=== PATIENT | male | born 1975 | race Caucasian/White ===

== ENCOUNTER 2017-04-08 22:44 | Emergency (ER) | payer BC, OTHER ==
[~2017-04-08] VITALS: Ht 177.8 cm; Wt 90.9 kg
[2017-04-09 00:39] LABS: BASO # 0.1 K/mm3 (0.0-0.2); BASO % 0.6 % (0.0-1.0); EOS # 0.3 K/mm3 (0.0-0.50); EOS % 3.1 % (0.0-3.0); LARGE UNSTAINED CELL # 0.2 K/mm3 (0.0-0.4); LYMPH % 28.8 % (24.0-44.0); MEAN CORPUSCULAR HEMOGLOBIN 30.4 pg (27.0-33.0); MEAN CORPUSCULAR HGB CONC 35.6 g/dl (32.0-36.5); MEAN CORPUSCULAR VOLUME 85.5 fl (80.0-96.0); MONO # 0.7 K/mm3 (0.0-0.8); MONO % 7.5 % (0.0-5.0); NEUTROPHILS # 5.7 K/mm3 (1.8-7.7); PLATELET COUNT, AUTOMATED 212 k/mm3 (150-450); RED CELL DISTRIBUTION WIDTH 12.9 % (11.5-14.5); WHITE BLOOD COUNT 9.8 K/mm3 (4.0-10.0)
[2017-04-09 01:07] LABS: METHADONE URINE NEGATIVE (NEGATIVE)
[2017-04-09 01:10] LABS: ANION GAP 5 MEQ/L (8-16); BLOOD UREA NITROGEN 12 MG/DL (7-18); CARBON DIOXIDE LEVEL 30 MEQ/L (21-32); CHLORIDE LEVEL 104 MEQ/L (98-107); CREATININE FOR GFR 0.94 MG/DL (0.70-1.30); GLOMERULAR FILTRATION RATE > 60.0 (>60); GLUCOSE, FASTING 113 MG/DL (70-105); POTASSIUM SERUM 3.6 MEQ/L (3.5-5.1); SODIUM LEVEL 139 MEQ/L (136-145)
[2017-04-09] MEDS ORDERED: LISINOPRIL 10 MG TAB PO ONE (01:15)
[2017-04-09] MEDS ORDERED: amLODIPine 5 MG TAB PO ONE (01:15)
[2017-04-09] MEDS ORDERED: cloNIDine 0.1 MG TAB PO ONE (02:45)
[2017-04-09 02:50] VITALS: BP 175/120
[2017-04-09] MEDS ORDERED: LISI10TA4 PO (03:38)
[2017-04-09 03:46] VITALS: BP 111/71
--- NOTE | 2017-04-09 08:17 | REP ---
Portable chest, 01:57 a.m., single AP view, patient sitting: There is an incomplete inspiratory effort with under aeration of the lung alaniz. There are no infiltrates, effusions or masses. Lung alaniz are clear. Cardiac size is normal for portable positioning. The saturnino, mediastinum, and bony thorax are unremarkable. Impression: Acute cardiopulmonary findings. Incomplete inspiratory effort. Signed by Willis Machado MD 04/09/2017 08:08 A
--- NOTE | 2017-04-09 20:20 | ECGEPIP ---
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
== END 2017-04-09 03:51 | disposition home or self-care (01) ==
LOC: M ED 22:44
DX: I10 Essential (primary) hypertension (principal); Z87.442 Personal history of urinary calculi; Z91.013 Allergy to seafood; Z91.030 Bee allergy status

== ENCOUNTER → 2017-10-20 | Outpatient (REF) | payer BC | LOC: M LAB REF 09:38 | DX: J11.1 Influenza due to unidentified influenza virus with other respiratory manifestations (principal) | CPT/HCPCS: 87633 ==

== ENCOUNTER → 2018-09-23 | Outpatient (CLI) | payer BC ==
[~2018-09-23] MED LIST: CHLO125TA PO; LISI10TA4 PO; POTA10TA67 PO; VALS1TAB47 PO
--- NOTE | 2018-09-23 14:18 | REP ---
LEFT ELBOW, FOUR VIEWS: HISTORY: Injury. There is no acute fracture or dislocation. The joint space is normal in appearance. IMPRESSION: There is no acute fracture or dislocation. Electronically Signed by Jose Tillman MD 09/23/2018 02:41 P
== END ==
LOC: M RAD 13:19
PROVIDERS: ATTEND Physician Assistant
DX: S59.902A Unspecified injury of left elbow, initial encounter (principal); W18.30XA Fall on same level, unspecified, initial encounter; Y92.009 Unspecified place in unspecified non-institutional (private) residence as the place of occurrence of the external cause

== ENCOUNTER 2019-02-03 07:40 | Emergency (ER) | payer BC ==
[~2019-02-03] VITALS: Ht 172.7 cm; Wt 88.1 kg
[~2019-02-03 07:40] MED LIST changes: -VALS1TAB47 PO; +VALS1TAB67 PO
[2019-02-03] MEDS ORDERED: TELM1TAB (07:46)
[2019-02-03 08:33] LABS: APPEARANCE, URINE MANUAL TURBID (CLEAR); COLOR, URINE MANUAL BROWN (YELLOW)
[2019-02-03 08:34] LABS: BLOOD URINE MANUAL POSITIVE (NEGATIVE); GLUCOSE, URINE (UA) MANUAL NEGATIVE (NEGATIVE); PH,URINE MAN 5.5 UNITS (5.0 - 7.0); PROTEIN, URINE MANUAL 2+ mg/dL (NEGATIVE); SPECIFIC GRAVITY,URINE MANUAL 1.025 (1.002-1.035)
[2019-02-03 08:35] LABS: BILIRUBIN, URINE MANUAL OBSCURED (NEGATIVE); KETONE, URINE MANUAL OBSCURED mg/dL (NEGATIVE); LEUKOCYTE ESTERASE, URINE MAN POSITIVE (NEGATIVE); NITRITE, URINE MANUAL OBSCURED (NEGATIVE); UROBILINOGEN, URINE MANUAL OBSCURED mg/dl (NORMAL)
[2019-02-03 08:36] LABS: BASO % 0.4 % (0.0-1.0); EOS # 0.5 10^3/uL (0.0-0.50); EOS % 5.9 % (0.0-3.0); HEMATOCRIT 45.4 % (42.0-52.0); LYMPH # 2.3 10^3/uL (1.5-4.5); LYMPH % 30.5 % (24.0-44.0); MEAN CORPUSCULAR HEMOGLOBIN 30.9 pg (27.0-33.0); MEAN CORPUSCULAR HGB CONC 35.2 g/dl (32.0-36.5); MEAN CORPUSCULAR VOLUME 87.8 fl (80.0-96.0); MONO # 0.7 10^3/uL (0.0-0.8); MONO % 9.2 % (0.0-5.0); NEUTROPHILS % 53.2 % (36.0-66.0); PLATELET COUNT, AUTOMATED 183 10^3/uL (150-450); RED BLOOD COUNT 5.17 10^6/uL (4.30-6.10); WHITE BLOOD COUNT 7.6 10^3/uL (4.0-10.0)
[2019-02-03 08:47] LABS: RBC, URINE TNTC /hpf (0-3)
[2019-02-03 08:48] LABS: AMORPHOUS SEDIMENT, URINE SMALL AMOUNT (NEGATIVE); BACTERIA, URINE SMALL AMOUNT; HYALINE CAST, URINE NONE SEEN /lpf (0-1); MUCUS, URINE MOD AMOUNT (NEGATIVE); SQUAMOUS EPITHELIAL CELL URINE SMALL AMOUNT /hpf (SMALL AMT)
[2019-02-03 08:56] LABS: BLOOD UREA NITROGEN 18 MG/DL (7-18); CALCIUM LEVEL 8.6 MG/DL (8.5-10.1); CARBON DIOXIDE LEVEL 30 MEQ/L (21-32); CHLORIDE LEVEL 104 MEQ/L (98-107); CREATININE FOR GFR 1.22 MG/DL (0.70-1.30); GLOMERULAR FILTRATION RATE > 60.0 (>60); GLUCOSE, FASTING 97 MG/DL (70-100); POTASSIUM SERUM 3.4 MEQ/L (3.5-5.1); SODIUM LEVEL 141 MEQ/L (136-145)
--- NOTE | 2019-02-03 09:23 | REP ---
KUB ABDOMEN AND PELVIS: KUB film of abdomen and pelvis is performed. Bowel gas pattern is normal. No abnormal calcifications are seen in the abdomen or pelvis. Visualized osseous structures appear unremarkable. IMPRESSION: Negative KUB. Electronically Signed by Willis Green MD 02/04/2019 08:52 A
[2019-02-03] MEDS ORDERED: FLOM0.4C39 PO (10:07)
--- NOTE | 2019-02-03 10:10 | REP ---
RENAL ULTRASOUND: Real-time sonographic evaluation of the kidneys performed. Kidneys are normal in size and echotexture, right kidney measuring 1.5 x 4.9 x 5.7 cm and left kidney 10.9 x 4.9 x 5.9 cm. There is no hydronephrosis bilaterally. I suspect a 6 mm calculus in the mid right renal collecting system. Urinary bladder is not well distended and not well evaluated. IMPRESSION: No hydronephrosis. I suspect 6 mm calculus mid right renal collecting system. Electronically Signed by Willis Green MD 02/04/2019 08:55 A
[2019-02-03 10:19] VITALS: BP 132/88
== END 2019-02-03 10:22 | disposition home or self-care (01) ==
LOC: M ED 07:40
DX: N20.0 Calculus of kidney (principal); J45.909 Unspecified asthma, uncomplicated

== ENCOUNTER 2021-08-10 08:21 | Emergency (ER) | payer BC ==
[~2021-08-10] VITALS: Ht 175.3 cm; Wt 80.5 kg
[~2021-08-10 08:21] MED LIST changes: +FLOM0.4C39 PO; +LISI10TA22 PO; -LISI10TA4 PO; +TELM1TAB35
[2021-08-10 08:22] VITALS: BP 136/87
--- OUTSIDE RECORDS SUMMARY | 2021-08-10 08:28 | CCD | Continuity of Care Document ---
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 Name Role Phone Steve Chen MD AUT [phone] Problems Description No Information Available Social History Type Date Description Comments Sex Unknown ETOH Use Denies alcohol use Tobacco Use Start: Unknown Patient has never smoked Allergies and adverse reactions Active Allergies Criticality Reaction | Severity Comments Date NKDA Unable to assess criticality 12/07/2014 Shellfish-derived Products Unable to assess criticality 12/07/2014 Bee Sting Unable to assess criticality 12/07/2014 Medications Active Medications SIG Qnty Indications Ordering Provide r Date Aleve 220mg Capsules last dose at 8:30 am todya Unknown Immunizations Description No Information Available Vital Signs Date Vital Result Comment 12/07/2014 12:14pm BP Systolic 156 mmHg BP Diastolic 108 mmHg Heart Rate 82 /min Respiratory Rate 16 /min O2 % BldC Oximetry 98 % Body Temperature 98.6 F Weight 196.00 lb Height 68 inches 5'8" BMI (Body Mass Index) 29.8 kg/m2 Pain Level 3 Results Description No Information Available Procedures Description No Information Available Medical Devices Description No Information Available Encounters Description No Information Available Assessments Date Code Description Provider 08/07/2021 U07.1 Covid-19 ISIDORO Nicole Plan of Treatment No Information Available Functional Status Description No Information Available Mental Status Description No Information Available Referrals Description No Information Available
--- OUTSIDE RECORDS SUMMARY | 2021-08-10 08:28 | CCD | Continuity of Care Document ---
Author Author Richie PARKINSON Organization Unknown Address [address] [place], [place] [address] Phone [phone] Care Team Providers Care Group Social Worker Name Role Phone Steve Chen MD AUT [phone] Problems Description No Information Available Social History [...]
--- OUTSIDE RECORDS SUMMARY | 2021-08-10 08:29 | CCD ---
Author Author [facility] Organization [facility] Address Unknown Phone Unavailable Care Team Providers Care Clinical Biostatistics Director Name Role Phone MANJIT, L LEO PA Unavailable Unavailable MANJIT, L LEO PA Unavailable Unavailable MANJIT, L LEO PA Unavailable Unavailable MANJIT, L LEO PA Unavailable Unavailable MANJIT, L LEO PA Unavailable Unavailable MANJIT, L LEO PA Unavailable Unavailable MANJIT, L LEO PA Unavailable Unavailable MANJIT, L LEO PA Unavailable Unavailable MANJIT, L LEO PA Unavailable Unavailable MANJIT, L LEO PA Unavailable Unavailable MANJIT, L LEO PA Unavailable Unavailable MANJIT, L LEO PA Unavailable Unavailable MANJIT, L LEO PA Unavailable Unavailable MANJIT, L LEO PA Unavailable Unavailable MANJIT, L LEO PA Unavailable Unavailable MANJIT, L LEO PA Unavailable Unavailable Jia DAHL MD Unavailable Unavailable Jia DAHL MD Unavailable Unavailable Jia DAHL MD Unavailable Unavailable Jia DAHL MD Unavailable Unavailable Jia DAHL MD Unavailable Unavailable Jia DAHL MD Unavailable Unavailable Jia DAHL MD Unavailable Unavailable Jia DAHL MD Unavailable Unavailable Jia DAHL MD Unavailable Unavailable Jia DAHL MD Unavailable Unavailable Jia DAHL MD Unavailable Unavailable Jia DAHL MD Unavailable Unavailable OBEN, T NEO MD Unavailable Unavailable OBEN, T NEO MD Unavailable Unavailable OBEN, T NEO MD Unavailable Unavailable OBEN, T NEO MD Unavailable Unavailable OBEN, T NEO MD Unavailable Unavailable OBEN, T NEO MD Unavailable Unavailable OBEN, T NEO MD Unavailable Unavailable OBEN, T NEO MD Unavailable Unavailable OBEN, T NEO MD Unavailable Unavailable OBEN, T NEO MD Unavailable Unavailable OBEN, T NEO MD Unavailable Unavailable OBEN, T NEO MD Unavailable Unavailable OBEN, T NEO MD Unavailable Unavailable OBEN, T NEO MD Unavailable Unavailable OBEN, T NEO MD Unavailable Unavailable OBEN, T NEO MD Unavailable Unavailable OBEN, T NEO MD Unavailable Unavailable OBEN, T NEO MD Unavailable Unavailable OBEN, T NEO MD Unavailable Unavailable OBEN, T NEO MD Unavailable Unavailable OBEN, T NEO MD Unavailable Unavailable OBEN, T NEO MD Unavailable Unavailable OBEN, T NEO MD Unavailable Unavailable OBEN, T NEO MD Unavailable Unavailable OBEN, T NEO MD Unavailable Unavailable OBEN, T NEO MD Unavailable Unavailable OBEN, T NEO MD Unavailable Unavailable OBEN, T NEO MD Unavailable Unavailable OBEN, T NEO MD Unavailable Unavailable OBEN, T NEO MD Unavailable Unavailable OBEN, T NEO MD Unavailable Unavailable OBEN, T NEO MD Unavailable Unavailable OBEN, T NEO MD Unavailable Unavailable OBEN, T NEO MD Unavailable Unavailable OBEN, T NEO MD Unavailable Unavailable OBEN, T NEO MD Unavailable Unavailable OBEN, T NEO MD Unavailable Unavailable OBEN, T NEO MD Unavailable Unavailable OBEN, T NEO MD Unavailable Unavailable OBEN, T NEO MD Unavailable Unavailable OBEN, T NEO MD Unavailable Unavailable OBEN, T NEO MD Unavailable Unavailable OBEN, T NEO MD Unavailable Unavailable OBEN, T NEO MD Unavailable Unavailable OBEN, T NEO MD Unavailable Unavailable OBEN, T NEO MD Unavailable Unavailable OBEN, T NEO MD Unavailable Unavailable OBEN, T NEO MD Unavailable Unavailable OBEN, T NEO MD Unavailable Unavailable OBEN, T NEO MD Unavailable Unavailable OBEN, T NEO MD Unavailable Unavailable OBEN, T NEO MD Unavailable Unavailable OBEN, T NEO MD Unavailable Unavailable OBEN, T NEO MD Unavailable Unavailable OBEN, T NEO MD Unavailable Unavailable OBEN, T NEO MD Unavailable Unavailable OBEN, T NEO MD Unavailable Unavailable OBEN, T NEO MD Unavailable Unavailable OBEN, T NEO MD Unavailable Unavailable OBEN, T NEO MD Unavailable Unavailable OBEN, T NEO MD Unavailable Unavailable OBEN, T NEO MD Unavailable Unavailable OBEN, T NEO MD Unavailable Unavailable OBEN, T NEO MD Unavailable Unavailable OBEN, T NEO MD Unavailable Unavailable OBEN, T NEO MD Unavailable Unavailable OBEN, T NEO MD Unavailable Unavailable OBEN, T NEO MD Unavailable Unavailable OBEN, T NEO MD Unavailable Unavailable OBEN, T NEO MD Unavailable Unavailable OBEN, T NEO MD Unavailable Unavailable OBEN, T NEO MD Unavailable Unavailable OBEN, T NEO MD Unavailable Unavailable OBEN, T NEO MD Unavailable Unavailable OBEN, T NEO MD Unavailable Unavailable OBEN, T NEO MD Unavailable Unavailable OBEN, T NEO MD Unavailable Unavailable OBEN, T NEO MD Unavailable Unavailable OBEN, T NEO MD Unavailable Unavailable OBEN, T NEO MD Unavailable Unavailable OBEN, T NEO MD Unavailable Unavailable OBEN, T NEO MD Unavailable Unavailable OBEN, T NEO MD Unavailable Unavailable OBEN, T NEO MD Unavailable Unavailable OBEN, T NEO MD Unavailable Unavailable OBEN, T NEO MD Unavailable Unavailable OBEN, T NEO MD Unavailable Unavailable OBEN, T NEO MD Unavailable Unavailable OBEN, T NEO MD Unavailable Unavailable OBEN, T NEO MD Unavailable Unavailable OBEN, T NEO MD Unavailable Unavailable OBEN, T NEO MD Unavailable Unavailable OBEN, T NEO MD Unavailable Unavailable OBEN, T NEO MD Unavailable Unavailable OBEN, T NEO MD Unavailable Unavailable OBEN, T NEO MD Unavailable Unavailable OBEN, T NEO MD Unavailable Unavailable OBEN, T NEO MD Unavailable Unavailable OBEN, T NEO MD Unavailable Unavailable OBEN, T NEO MD Unavailable Unavailable OBEN, T NEO MD Unavailable Unavailable OBEN, T NEO MD Unavailable Unavailable OBEN, T NEO MD Unavailable Unavailable OBEN, T NEO MD Unavailable Unavailable Rita CARR MD Unavailable Unavailable Rita CARR MD Unavailable Unavailable Rita CARR MD Unavailable Unavailable Rita CARR MD Unavailable Unavailable Rita CARR MD Unavailable Unavailable Rita CARR MD Unavailable Unavailable Rita CARR MD Unavailable Unavailable Rita CARR MD Unavailable Unavailable Rita CARR MD Unavailable Unavailable Rita CARR MD Unavailable Unavailable Rita CARR MD Unavailable Unavailable Re-disclosure Warning The records that you are about to access may contain information from federally-assisted alcohol or drug abuse programs. If such information is present, then the following federally mandated warning applies: This information has been disclosed to you from records protected by federal confidentiality rules (42 CFR part 2). The federal rules prohibit you from making any further disclosure of this information unless further disclosure is expressly permitted by the written consent of the person to whom it pertains or as otherwise permitted by 42 CFR part 2. A general authorization for the release of medical or other information is NOT sufficient for this purpose. The Federal rules restrict any use of the information to criminally investigate or prosecute any alcohol or drug abuse patient.The records that you are about to access may contain highly sensitive health information, the redisclosure of which is protected by Article 27-F of the [facility] Public Health law. If you continue you may have access to information: Regarding HIV / AIDS; Provided by facilities licensed or operated by the [facility] Office of Mental Health; or Provided by the [facility] Office for People With Developmental Disabilities. If such information is present, then the following [facility] mandated warning applies: This information has been disclosed to you from confidential records which are protected by state law. State law prohibits you from making any further disclosure of this information without the specific written consent of the person to whom it pertains, or as otherwise permitted by law. Any unauthorized further disclosure in violation of state law may result in a fine or [place] health [facility] facility sentence or both. A general authorization for the release of medical or other information is NOT sufficient authorization for further disc losure. Family History Family Member Name Family Member Gender Family Member Status Date o f Status Description Data Source(s) Unknown Male Problem [facility] ([facility]) Unknown Male Problem [facility] ([facility]) at age 64 Encounters Encounter Providers Location Date Indications Data Source(s ) Outpatient Attender: LEO CHAUDHRY Main Office 02/08/2021 0 8:15:00 AM EDT [facility] ([facility]) Outpatient Attender: NEO DAHL MD Family Practice 01/16/2021 10:00:0 0 AM EDT [facility] ([facility]) Outpatient Attender: NEO DAHL MD 01/17/20 09:53:00 AM EDT - 01/16/2021 09:53:00 AM EDT [facility] Emergency Attender: ESTEPHANIA CARR MD 10/19/2020 07:32:00 AM EST - 10/19/2020 10:03:00 AM EST [facility] Patient discharged. Outpatient Attender: LEO CHAUDHRY Main Office 08/08/2020 0 7:00:00 AM EST [facility] ([facility]) Medications Medication Brand Name Start Date Product Form Dose Route Admi nistrative Instructions Pharmacy Instructions Status Indications Reaction Description Data Source(s) Losartan Potassium 50 MG Oral Tablet Losartan Potassium 06/2021 12:00:00 AM EDT ORAL active [facility] ([facility]) 25 mg 07/26/2020 12:00:00 AM EST tablet 15 TAKE ONE-HALF TABLET BY MOUTH EVERY DAY TAKE ONE-HALF TABLET BY MOUTH EVERY DAY SOLD: 07/26/2020 [facility] 25 mg 07/26/2020 12:00:00 AM EST tablet 15 TAKE ONE-HALF TABLET BY MOUTH EVERY DAY TAKE ONE-HALF TABLET BY MOUTH EVERY DAY SOLD: 07/26/2020 [facility] Chlorthalidone 25 MG Oral Tablet Chlorthalidone 07/26/2020 12:00:00 A M EST ORAL active [facility] ([facility]) Spironolactone 25 MG Oral Tablet Spironolactone 07/26/2020 12:00:00 A M EST ORAL completed [facility] ([facility]) telmisartan 40 MG Oral Tablet TELMISARTAN 03/29/2020 12:00:00 AM EDT tablet 90 TAKE ONE TABLET BY MOUTH AT BEDTIME TAKE ONE TABLET BY MOUTH AT BEDTIME SOLD: 07/07/2020 [facility] Insurance Providers Payer name Policy type / Coverage type Policy ID Covered constitution party ID Covered constitution party's relationship to obrien Policy Obrien Plan Information BCBS ARIANNA BULL PPO 302/307 [id number] SP [id number] [facility] [id number] 18 [id number] [facility] SHIELD -O/P [place] [id number] 18 [id number] BLUE [facility] CO [id number] 18 [id number] [employer] BC-BS PPO [id number] SP [id number] [employer] [facility] BS [id number] 18 [id number] BLUE [facility] [place] [id number] 18 [id number] [employer]BS B [id number] S [id number] [facility] Shield Commercial [id number] Self V [id number] [employer]BS [employer] U/W Commercial [id number] Self [id number] [employer] U/[employer] Commercial [id number] Self [id number] [employer] U/[employer] Commercial [id number] Self [id number] [employer]-BS PPO [id number] SP [id number] [employer] Ppo U/W Commercial [id number] Self V [id number] [employer] BC-BS PPO [id number] SP [id number] [facility] [id number] SP [id number] Problems, Conditions, and Diagnoses Code Display Name Description Problem Type Effective Dates Data Source(s) E73273 Personal history of urinary calculi Personal his tory of urinary calculi Diagnosis 10/19/2020 07:32:00 AM [facility] I10 Essential (primary) hypertension Essential (primary) h ypertension Diagnosis 10/19/2020 07:32:00 AM [facility] R319 Hematuria, unspecified Hematuria, unspecified Diagnosi s 10/19/2020 07:32:00 AM [facility] N132 Hydronephrosis with renal and ureteral c alculous obstruction Hydronephrosis with renal and ureteral calculous obstruction Diagnosis 10/19/19 07:32:00 AM [facility] R109 Unspecified abdominal pain Unspecified abdominal pain Diagnosis 10/19/2020 07:32:00 AM [facility] Surgeries/Procedures Procedure Description Date Indications Data Source(s) ECG ROUTINE ECG W/LEAST 12 LDS W/I&R 02/08/2021 12:00: 00 AM EDT [facility] ([facility]) Results ID Date Data Source [id number] 01/16/2021 02:07:00 PM EDT [facility] ([facility]) Name Value Range Interpretation Code Description Data Lucia rce(s) Supporting Document(s) Appearance of Urine Laboratory test result [facility] ([facility]) Color of Urine Laboratory test result [facility] ([facility]) pH of Urine by Test strip 7 5-9 MEDE NT ([facility]) Spec Ely 1.015 1.001-1.030 [facility] ([facility]) Nitrate [Presence] in Urine Laboratory test result [facility] ([facility]) Leukocytes Laboratory test result [facility] ([facility]) Inhouse Glucose Laboratory test result [facility] ([facility]) Protein [Presence] in Urine by Test strip Laboratory test result [facility] ([facility]) Urobilinogen Laboratory test result [facility] ([facility]) Ketones [Presence] in Urine by Test strip Laboratory test result [facility] ([facility]) Bilirubin.total [Presence] in Urine by Test strip Laboratory test res ult [facility] ([facility]) Blood type and Indirect antibody screen panel - Blood Laboratory test result [facility] ([facility]) ID Date Data Source [id number] 01/16/2021 10:34:00 AM EDT [facility] ([facility]) Name Value Range Interpretation Code Description Data Lucia rce(s) Supporting Document(s) Abdomen XR 1 View Laboratory test result [facility] ([facility]) ID Date Data Source [id number] 10/19/2020 07:32:00 AM EST [facility] 1 OrderSheet [facility] Emergency Department [address] [place] [address] Phone #: [phone] 10/19/2020 07:19 Patient: PIERRE ROQUE Sex: M : 1975 Age: 45yWEIGHT:85.2 kg (S) HEIGHT:69 inches (S) BMI:27.8ALLERGIES: ROBIN Inhibitors, Bees, Nuclear stress test, Shellfish-derived ProductsCHIEF COMPLAINT: flank pain:, RtDIAGNOSIS: Renal colicLAB ORDERSOrder Description Priority Entered Acknowledged InitialedCBC w Diff STAT 07:26 10/19/2020 07:46 Lilly Pino Victoria Jennifer R.N. ;CMP STAT 07:10/19/2020 07:46 Lilly Pion Victoria Jennifer R.N. ;Urinalysis (Clean STAT 07:10/19/2020 07:29 Odette,Catch) Estephania Carr R.N. ;DIAGNOSTIC STUDY ORDERSOrder Description Priority Entered Acknowledged Ini tialedCT ABD PEL W/O STAT 07:26 10/19/2020 Ack'd: 07:29 07:58 Duval,Oral W/O IV Estephania Carr Jennifer Jennifer R.N.Contrast ; R.N.(Oxygen?(No))(IV?(Yes)) Reason for Study: right flank pain hx of kidney stoneMEDICATION/IV/DRIP/FLUID ORDERSOrder Description Priority Entered Acknowledged InitialedNS IV : Bolus 1000 07:26 10/19/2020 Ack'd: 07:29 07:39 Bernardino Acosta, then 100 mL/hr Estephania Carr Jennifer R.N. ; R.N.Toradol IVP 30 mg 07:26 10/19/2020 Ack'd: 07:29 07:39 Sierra Acosta(NOW x1) Estephania Carr, Dawn Nevarez ; R.N.Zofran 4 mg IVP X 1 07:26 10/19/2020 Ack'd: 07:29 07:40 Kasey Acostaose: 4 mg (NOW Estephania Carr, Dawn Nevarez 2 OrderSheet [facility] Emergency Department [address] [place] [address] Phone #: ext- [phone] 10/19/2020 07:19 Patient: PIERRE ROQUE Sex: M : 1975 Age: 45yx1) ; R.N.Zofran IVP 8 mg 08:14 10/19/2020 08:19 Duval,(NOW x1) Krishna Gandhi ; Dawn Nevarez Verbal order per; Estephania CarrMorphine IVP 4 mg 08:14 10/19/2020 08:21 Duval,(NOW x1, HIGH Krishna Gandhi ; Dawn NevarezALERT Verbal order per;MEDICATION) Estephania CarrMorphine IVP 4 mg 08:47 10/19/2020 08:57 Duval,(HIGH ALERT Estephania Carr R.N.MEDICATION) ;Flomax PO 0.4 mg 08:47 10/19/2020 08:55 Duval,(NOW x1, Do not Estephania Carr R.N.crush or chew) ;GENERAL ORDERSOrder Description Priority Entered Acknowledged Initialed[Electronically signed by Marcos Rossi RN (21:52 10/19/2020)][Electronically signed by Estephania Carr (23:54 10/19/2020)][Electronically locked by Marcos Rossi RN (21:52 10/19/2020)] Name Value Range Interpretation Code Description Data Lucia rce(s) Supporting Document(s) ID Date Data Source [id number] 10/19/2020 07:32:00 AM EST [facility] 1 Medication Reconciliation Report [facility] Emergency Department [address] [place] [address] Phone #: [phone] 10/19/2020 07:19 Patient: PIERRE ROQUE Sex: M : 1975 Age: 45yWeight: 85.2 kgHeight/Length: 69 in.BMI: 27.8ALLERGIES: ROBIN Inhibitors, Bees, Nuclear stress test, Shellfish-derived ProductsThe patient's Home Medications are listed below:CONTINUE TAKING THE FOLLOWING MEDICATIONS: Chlorthalidone Oral (25 mg) 1/2 tablet, daily T elmisartan Oral 40 mg, dailyThe source(s) of the original Home Medication information:patientThe following Medications were given to the patient in the Emergency Department:NS [IV] IV Fluids bolus 1000 mL over 1 hour(s), administered: 07:39 10/19/2020Toradol [IVP] IVP 30 mg, administered: 07:39 10/19/2020Zofran [IVP] IVP 4 mg, administered: 07:40 10/19/2020Zofran [IVP] IVP 8 mg, administered: 08:17 10/19/2020Morphine [IVP] IVP 4 mg diluted in NS 10 mL, administered: 08:21 10/19/2020Flomax [PO] PO 0.4 mg, administered: 08:55 10/19/2020Morphine [IVP] IVP 4 mg diluted in NS 10 mL, administered: 08:57 0 10/19/2020The following Medications were prescribed to the patient:Percocet 5 mg- 325 mg tablet Take 1 tablet every six hours as needed for pain for 3 days -- Dispense 12tablet. Refills: 0. Substitution permitted.[facility] [address] [place] [address] ; [place], [place] [phone]. . 2 Medication Reconciliation Report [facility] Emergency Department [address] [place] [address] Phone #: ext [phone] 10/19/2020 07:19 Patient: PIERRE ROQUE Sex: M : 1975 Age: 45yIBU 800 mg tablet Take 1 tablet three times a day for 15 days -- Dispense 45 tablet. Refills: 0.Substitution permitted.[facility] [address] [place] [phone]. .Flomax 0.4 mg capsule Take 1 capsule single dose for 7 days -- Dispense 7 capsule. Refills: 0.Substitution permitted.[facility] [address] [place] [phone]. .ondansetron 4 mg disintegrating tablet Take 1 tablet three times a day for 3 days -- prn nausea/vomiting.Dispense 9 tablet. Refills: 0. Substitution permitted.[facility] [address] [place] [phone]. . -- Estephania Carr Name Value Range Interpretation Code Description Data Lucia rce(s) Supporting Document(s) ID Date Data Source [id number] 10/19/2020 07:32:00 AM EST [facility] 1 Medication Administration Record [facility] Emergency Department [address] [place] [address] Phone #: ext- [phone] 10/19/2020 07:19 Patient: PIERRE ROQUE Sex: M : 1975 Age: 45yWeight: 85.2 kgHeight/Length: 69 inBMI: 27.8ALLERGIES: Nuclear stress test, Bees, Shellfish-derived Products, ROBIN Inhibitors Date/Time Medication Administered Medication OrderedStart NS [IV] NS IV : Bolus 1000 mL, then 57203:39 10/19/2020 Dose: IV Fluids mL/hrSierra Acosta R.N. Bolus: 1000 mL over 1 hour(s)---- Dispensed: 1000 mL bagStop Site: #1 right AC10:00 1Peter Roderick Rossi TORADOL [IVP] (KETOROLAC Toradol IVP 30 mg (NOW x1)07:39 10/19/2020 TROMETHAMINE)Sierra Acosta R.N. Dose: 30 mg IVP Site: #1 right ACGiven ZOFRAN [IVP] (ONDANSETRON HCL) Zofran 4 mg IVP X 1 dose: 4 mg07:40 10/19/2020 Dose: 4 mg IVP (NOW x1)Sierra Acosta R.N. Site: #1 right ACGiven ZOFRAN [IVP] (ONDANSETRON HCL) Zofran IVP 8 mg (NOW x1)08:17 10/19/2020 Dose: 8 mg IVPPutDawn turner R.N. Site: #1 right ACGiven MORPHINE [IVP] Morphine IVP 4 mg (NOW x1, HIGH08:21 10/19/2020 Dose: 4 mg IVP ALERT MEDICATION)Dawn Pino R.N. In: NS 10 mL Site: #1 right ACGiven MORPHINE [IVP] Morphine IVP 4 mg (HIGH ALERT08:57 10/19/2020 Dose: 4 mg IVP MEDICATION)Dawn Pino R.N. In: NS 10 mL Site: #1 right ACGiven FLOMAX [PO] (TAMSULOSIN HCL) Flomax PO 0.4 mg (NOW x1, Do08:55 10/19/2020 Dose: 0.4 mg Capsules PO not crush or chew)Dawn Pino R.N. Name Value Range Interpretation Code Description Data Lucia rce(s) Supporting Document(s) ID Date Data Source [id number] 10/19/2020 07:32:00 AM EST [facility] 1 General Instructions [facility] Emergency Department [address] [place] [address] Phone #: ext- [phone] 10/19/2020 07:19 Patient: PIERRE ROQUE Sex: M : 1975 Age: 45yRight renal colic in the right ureter with multiple calculi with hydronephrosis and hematuria.INSTRUCTIONSDrink plenty of fluids.(take the flomax daily. take motrin for moderate pain and percocet as needed for severe pain/ takezofran as needed for nausea. follow up wit urology DR Dahl on friday).Warnings: SEDATIVE MEDICATION: You were given sedative medication during your visit. Do not driveor operate dangerous machinery.GENERAL WARNINGS: Return or contact your physician immediately if your condition worsens orchanges unexpectedly, if not improving as expected, or if other problems arise.Your Current Medications: Your current home medications have been reviewed.CONTINUE TAKING THE FOLLOWING MEDICATIONS:Chlorthalidone Oral : Tablet 25 mg, 1/2 tablet daily.Telmisartan Oral : 40 mg daily.Prescription Medications:Percocet 5 mg-325 mg tablet Take 1 tablet every six hours as needed for pain for 3 days -- Dispense 12tablet. Refills: 0. Substitution permitted.Pharmacy - [facility] [address] [facility] ; [place], [place] [id number]. .IBU 800 mg tablet Take 1 tablet three times a day for 15 days -- Dispense 45 tablet. Refills: 0.Substitution permitted.[facility] [address] [place] [address] ; [place], [place] [phone]. .Flomax 0.4 mg capsule Take 1 capsule single dose for 7 days -- Dispense 7 capsule. Refills: 0.Substitution permitted.[facility] [employer] [facility] [address] [place] [phone]. FaxNumber: [phone].ondansetron 4 mg disintegrating tablet Take 1 tablet three times a day for 3 days -- prn nausea/vomiting.Dispense 9 tablet. Refills: 0. Substitution permitted.[facility] [employer] [address] [place] [address] ; [place], [place] [phone]. . 2 General Instructions [facility] Emergency Department [address] [place] [id number] Phone #: ext- [phone] 10/19/2020 07:19 [id number] Sex: M : 1975 Age: 45yFollow-up:Blood pressure screening was not performed during this visit because the patient has an active diagnosisof hypertension. The patient should follow up with a primary care provider for blood pressure management.Follow-up with: Neo Dahl M.D., Urology, , [address] [place] [address], [address] Follow up Friday. Call for the next available appointment. Reason for referral: evaluation. Summary ofcare provided to patient via paper. ADDITIONAL INFORMATIONKidney Stone with PainThe sharp cramping pain on either side of your lower back and nausea/vomiting that you have arebecause of a small stone that has formed in the kidney. It is now passing down a narrow tube (ureter)on its way to your bladder. Once the stone reaches your bladder, the pain will often stop. But it maycome back as the stone continues to pass out of the bladder and through the urethra. The stone maypass in your urine stream in one piece. The size may be 1/16 inch to 1/4 inch (1 mm to 6 mm). Or, thestone may break up into niranjan fragments that you may not even notice.Once you have had a kidney stone, you are at risk of getting another one in the future. There are 4types of kidney stones. Eighty percent are calcium stones--mostly calcium oxalate but also some 3 General Instructions [facility] Emergency Department [address] [place] [address] Phone #: ext- [phone] 10/19/2020 07:19 Patient: PIERRE ROQUE Sex: M : 1975 Age: 45ywith calcium phosphate. The other 3 types include uric acid stones, struvite stones (from a precedinginfection), and rarely, cystine stones.Most stones will pass on their own, but may take from a few hours to a few days. Sometimes thestone is too large to pass by itself. In that case, the healthcare provider will need to use other ways toremove the stone. These techniques include: Lithotripsy. This uses ultrasound waves to break up the stone. Ureteroscopy. This pushes a basket-like instrument through the urethra and bladder and into the ureter to pull out the stone. Various types of direct surgery through the skinHome careThe following are general care guidelines: Drink plenty of fluids. This means at least 12, 8-ounce glasses of fluid--mostly water--a day. Each time you urinate, do so in a jar. Pour the urine from the jar through the strainer and into the toilet. Continue doing this until 24 hours after your pain stops. By then, if there was a kidney stone, it should pass from your bladder. Some stones dissolve into sand-like particles and pass right through the strainer. In that case, you won't ever see a stone. Save any stone that you find in the strainer and bring it to your healthcare provider to look at. It may be possible to stop certain types of stones from forming. For this reason, it is important to know what kind of stone you have. Try to stay as active as possible. This will help the stone pass. Don't stay in bed unless your pain keeps you from getting up. You may notice a red, pink, or brown color to your urine. This is normal while passing a kidney stone. If you develop pain, you may take ibuprofen or naproxen for pain, unless another medicine was prescribed. If you have chronic liver or kidney disease, talk with your healthcare provider before taking these medicines. Also talk with your provider if you've had a stomach ulcer or GI bleeding.Preventing stonesEach year for the next 5 to 7 years, you are at risk that a new stone will form. Your risk is a 50%chance over this time period. The risk is higher if you have a family history of kidney stones or havecertain chronic illnesses like hypertension, obesity, or diabetes. But you can make changes to yourlifestyle and diet that can lower your risk for another stone.Most kidney stones are made of calcium. The following is advice for preventing another calcium 4 General Instructions [facility] Emergency Department [address] [place] [address] Phone #: ext- [phone] 10/19/2020 07:19 Patient: PIERRE ROQUE Sex: M : 1975 Age: 45ys tone. If you don't know the type of stone you have, follow this advice until the cause of your stone isfound.Things that help: The most important thing you can do is to drink plenty of fluids each day. See home care above. Eat foods that contain phytates. These include wheat, rice, rye, barley, and beans. Phytates are substances that may lower your risk for any type of stone to form. Eat more fruits and vegetables. Choose those that are high in potassium. Eat foods high in natural citrate like fruit and low-sugar fruit juices. Having too little calcium in your diet can put you at risk for calcium kidney stones. Eat a normal amount of calcium in your diet and talk with your healthcare provider if you are taking calcium supplements. Cutting back on your calcium intake may raise your risk. New research shows that eating calcium-rich and oxalate-rich foods together lowers your risk for stones by binding the minerals in the stomach and intestines before they can reach t he kidneys. Limit salt intake to 2 grams (1 teaspoon) per day. Use limited amounts when cooking, and don't add salt at the table. Processed and canned foods are usually high in salt. Spinach, rhubarb, peanuts, cashews, almonds, grapefruit, and grapefruit juice are all high oxalate foods. You should limit how much of these you eat. Or eat them with calcium-rich foods. These include dairy products, dark leafy greens, soy products, and calcium-enriched foods. Reducing the amount of animal meat and high protein foods in your diet may lower your risk for uric acid stones. Avoid excess sugar (sucrose) and fructose (sweetener in many soft drinks) in your diet. If you take vitamin C as a supplement, don't take more than 1,000 mg a day. A dietitian or your healthcare provider can give you information about changes in your diet that will help prevent more kidney stones from forming.Follow-up careFollow up with your healthcare provider, or as advised, if the pain lasts m ore than 48 hours. Talk withyour provider about urine and blood tests to find out the cause of your stone. If you had an X-ray, CTscan, or other diagnostic test, you will be told of any new findings that may affect your care.Call [phone] General Instructions [facility] Emergency Department [address] [place] [address] Phone #: ext- [phone] 10/19/2020 07:19 Patient: PIERRE ROQUE Sex: M : 1975 Age: 45yCall 911 if you have any of these: Weakness, dizziness, or faintingWhen to seek medical adviceCall your healthcare provider right away if any of these occur: Pain that is not controlled by the medicine given Repeated vomiting or unable to keep down fluids Fever of 100.4F (38C) or higher, or as directed by your healthcare provider Passage of solid red or brown urine (can't see through it) or urine with lots of blood clots Foul-smelling or cloudy urine Unable to pass urine for 8 hours and increasing bladder pressure [id number] [employer]. [address] [place] [address]. All rights reserved. This information is not intended as asubstitute for professional medical care. Always follow your healthcare professional's instructions. You have been given the following additional information: Kidney Stone w/ Colic(Electronically signed by Estephania Carr 10/19/2020 23:54) Name Value Range Interpretation Code Description Data Lucia rce(s) Supporting Document(s) ID Date Data Source [id number] 10/19/2020 07:32:00 AM EST [facility] 1 Clinical Report - Nurses [facility] Emergency Department [address] [place] [address] Phone #: ext- [phone] 10/19/2020 07:19 Patient: PIERRE ROQUE Sex: M : 1975 Age: 45yTRIAGEArrived by private vehicle. Historian: patient. Unaccompanied.Triage time: late entry - 07:19 10/19/2020. Acuity: LEVEL 3.Chief Complaint: FLANK PAIN.Alert.This started today. Onset. (15 minutes ago). ( Pt states he has a large history of multiple kidney stonesin the past. Pt states this morning he started having right sided flank pain, after trying to void this morningand had painful urination.). The patient has had nausea. 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 SEPSIS SCREEN NEGATIVE. No suspected or confirmedsigns of infection present. (07:28 10/19/2020). --07:28 10/19/20 Dawn Pino R.N.07 :20 10/19/20. BP: 135/84. MAP: 101. HR: 75. RR: 20. O2 saturation: 100% on room air. Temp: 97.1 F(oral). Pain level now 7/10. --07:28 10/19/20 Dawn Pino R.N.Weight: 85.2 kg stated. Height/Length: 69 inches Per Patient. BMI: 27.8. --07:18 10/19/20 Dawn Pino R.N.MedicationsChlorthalidone Oral (Tablet 25 mg) 1/2 tablet, daily. --07:26 10/19/20 Dawn Pino R.N. Telmisartan Oral 40 mg, daily. --07:26 10/19/20 Dawn Pino R.N.The following entry was struck and corrected by Dawn Pino R.N., 08:21 (10/19/20) Reason forcorrection - other(correction). Telmisartan Oral, daily. --07:26 10/19/20 Dawn Pino R.N.The following entry was struck and corrected by Dawn Pino R.N., 08:21 (10/19/20) Reason forcorrection - other(correction). Chlorthalidone Oral 1/2 PILL, daily. --07:26 10/19/20 Dawn Pino R.N. .AllergiesShellfish-derived Products. --07:26 10/19/20 Dawn Pino R.N.Bees. --07:26 10/19/20 Dawn Pino R.N.Nuclear stress test. (dye??) --07:26 10/19/20 aDwn Pino R.N.ROBIN Inhibitors. Side-Effect Mild (Cough) --08:16 10/19/20 Krishna Gandhi. 2 Clinical Report - Nurses [facility] Emergency Department [address] [place] [address] Phone #: ext- [phone] 10/19/2020 07:19 ----- Patient: PIERRE ROQUE Sex: M : 1975 Age: 45y PROBLEMS: Nephrolithiasis. Hypertension. --07:27 10/19/20 Dawn Pino R.N. Medication/allergy information source: the patient. --07:28 10/19/20 Dawn Pino R.N. ADDITIONAL SURGERIES: no known surgeries. History PAST MEDICAL HX: Immunizations: up-to-date. SOCIAL HX: Never smoker. No alcohol use or drug use. No recent travel. No known contact with a sick individual. The patient was offered HIV testing but declined. Patient education was provided. The patient was offered hepatitis C testing but declined. Patient education was provided. ( COVID screen negative). The patient has not traveled outside the [place] Infectious disease exposure: No infectious disease exposure. The patient was not exposed to Coronavirus. Mask placed on patient. Patient is not a known carrier of tuberculosis, hepatitis, HIV, MRSA or VRE. Patient is not a known carrier of CRE. SELF HARM ASSESSMENT: Self harm assessment was performed. The patient answered "no" to the question(s) "Do you have thoughts of harming or killing yourself?" and "Do you have a plan for harming or killing yourself?". ABUSE ASSESSMENT: Abuse assessment. The patient had positive responses to the question(s) "Do you feel safe in your home?". Abuse denied. No suspicion of abuse. No report of abuse. NUTRITIONAL RISK ASSESSMENT: The nutritional risk assessment revealed no deficiencies. FUNCTIONAL ASSESSMENT: Functional assessment: no impairments noted. LEARNING NEEDS ASSESSMENT: The learning needs assessment revealed no barriers. FALL RISK ASSESSMENT: Fall risk assessment co mpleted. No risk factors identified. SKIN INTEGRITY ASSESSMENT: Skin integrity risk assessment completed. No skin integrity risk identified. --:10/19/20 Dawn Pino R.N. Interventions Identification band on patient. --:10/19/20 Dawn Pino R.N.PHYSICAL ASSESSMENTAmbulatory to room.GENERAL / NEURO / PSYCH: Alert. Oriented X 4. Appears in pain.HEENT: Mucous membranes are pink. 3 Clinical Report - Nurses [facility] Emergency Department [address] [place] [address] Phone #: ext- [phone] 10/19/2020 07:19 Patient: PIERRE ROQUE Sex: M : 1975 Age: 45y RESPIRATORY: Respirations not labored. Breath sounds within normal limits. CVS: Capillary refill less than 2 seconds. GI / : The patient has had nausea. Abdomen soft. Abdominal tenderness in the right side of the abdomen (radiates to right flank). Bowel sounds within normal limits. No emesis noted. No diarrhea. CVA tenderness on the right. No urethral discharge. SKIN: Skin is warm and dry. --10/19/20 Dawn Pino R.N.NURSING PROGRESS NOTESNIBP monitor and pulse oximeter placed on patient; monitor alarms on. Patient gowned. Reassurancegiven. Three patient identifiers checked. Call light placed in reach. Side rails up x 2. Bed placed inlowest position. Brakes of bed on. Patient ready for evaluation- ED physician notified. --10/19/20Dawn Pino R.N. Patient ID band checked for patient name and birthdate: patient confirmed. Instructions provided to collect clean catch urine and patient verbalized understanding. Clean catch urine collected; sample sent to lab for urinalysis. Specimen labeled in the presence of the patient. --07:29 10/19/20 Dawn Pino R.N. 07:39 10/19/2020 Site #1 started via IV in the right antecubital space with an 20g angiocath, with aseptic technique and good blood return; one attempt. Saline lock flushed with 10 mL saline. --07:39 10/19/20 Sierra Acosta R.N. 07:39 10/19/2020 Started bag #1 1000 mL IV Fluids NS; bolus of 1000 mL over 1 hour(s) via site #1 via IV pump. Allergies verified and confirmed 5 rights. IV patency established. IV site checked: no pain, redness, or swelling. IV flushed thoroughly pre- and post-medication administration. Information reviewed with patient including reason for taking this medication, signs of allergic reaction and precautions. Verbalizes understanding. --07:39 10/19/20 Sierra Acosta R.N. 07:39 10/19/2020 Toradol (Ketorolac Tromethamine) IVP 30 mg given over 2 minute(s) via site #1. Allergies verified and confirmed 5 rights. IV patency established. IV site checked: no pain, redness, or swelling. IV flushed thoroughly pre- and post-medication administration. IVP given by RN. Information reviewed with patient including reason for taking this medication, signs of allergic reaction and precautions. Verbalizes understanding. --07:39 10/19/20 Sierra Acosta R.N. 07:40 10/19/2020 Zofran (Ondansetron HCl) IVP 4 mg given over 2 minute(s) via site #1. Allergies verified and confirmed 5 rights. IV patency established. IV site checked: no pain, redness, or swelling. IV flushed thorou allyssaly pre- and post-medication administration. IVP given by RN. Information reviewed with patient including reason for taking this medication, signs of allergic reaction and precautions. Verbalizes understanding. --07:40 10/19/20 Sierra Acosta R.N. late entry - 07:53 10/19/20. Patient transported to CT by wheelchair with mask and chief radiology. --07:58 10/19/20 Dawn Pino R.N. late entry - 08:03 10/19/20. Patient returned from CT by wheelchair with mask and chief radiology. --08:06 10/19/20 Dawn Pino R.N. 4 Clinical Report - Nurses [facility] Emergency Department [address] [place] [address] Phone #: ext- [phone] 10/19/2020 07:19 -------- Patient: PIERRE ROQUE Sex: M : 1975 Age: 45y08:12 10/19/2020 Toradol IVP Response: no adverse reaction pain is worsening. Symptoms are the same.The patient feels the same. ED physician notified. --08:12 10/19/20 Dawn Pino R.N.08:12 10/19/2020 Zofran IVP Response: no adverse reaction symptoms are the same. The patient feelsthe same. --08:12 10/19/20 Dawn Pino R.N.Reassessment acuity: LEVEL 3.Rounding: Pain: assessed pain level. Proximity of possessions / care items: call light within easy reach.Plug ins: assured IV pump plugged in; checked status of equipment in use; located all cords, tubes, andlines to prevent fall hazard. Set expectations: advised patient of rounding protocol timing and asked if theyneeded anything else at this time. Reassessment after medication administered. Pain still present.Overall patient status is the same- he states feels the same.GI / : The patient reports nausea. The patient reports vomiting (Pt dry heaving at bedside; MD aware).The patient reports abdominal pain is still present. --08:13 10/19/20 Dawn Pino R.N.08:17 10/19/2020 Zofran (Ondansetron HCl) IVP 8 mg given over 4 minute(s) via site #1. Allergies verifiedand confirmed 5 rights. IV patency established. IV site checked: no pain, redness, or swelling. IV flushedthoroughly pre- and post-medication administration. IVP given by RN. Information reviewed with patientincluding reason for taking this medication, s igns of allergic reaction and precautions. Verbalizesunderstanding. --08:19 10/19/20 Dawn Pino R.N.08:19 10/19/20. BP: 147/103. HR: 70. RR: 20. O2 saturation: 100%. Pain level now 05/11. --08: Dawn Pino R.N.08:21 10/19/2020 Morphine IVP 4 mg given diluted in NS 10mL over 4 minute(s) via site #1. Allergiesverified and confirmed 5 rights. IV patency established. IV site checked: no pain, redness, or swelling. IVflushed thoroughly pre- and post-medication administration. IVP given by RN. Information reviewed withpatient including reason for taking this medication, signs of allergic reaction, precautions and sedativewarning. Verbalizes understanding. --08:21 10/19/20 Dawn Pino R.N.08:27 10/19/2020 IV Fluids NS via IV site #1 Bag Change: bag #1 completed. Total amount infused: 1000.STARTED bag #2 (1000 mL) at 150 mL/hr via IV pump. Confirmed 5 rights. IV patency established. IV sitechecked: no pain, redness, or swelling. IV flushed thoroughly. --08:27 10/19/20 Dawn Pino R.N.08:35 10/19/2020 Morphine IVP Response: no adverse reaction pain is improving. Symptoms haveimproved the patient feels better. --08:55 10/19/20 Dawn Pino R.N.08:55 10/19/2020 Flomax (Tamsulosin HCl) PO Capsules 0.4 mg given. Allergies verified and confirmed 5rights. Information reviewed with patient including reason for taking this medication, signs of allergicreaction and precautions. Verbalizes understanding. --08:55 10/19/20 Dawn Pino R.N.08:56 10/19/20. BP: 134/91. MAP: 105. HR: 55. RR: 18. O2 saturation: 100% on room air. Pain level now: 5 Clinical Report - Nurses [facility] Emergency Department [address] [place] [address] Phone #: ext- [phone] 10/19/2020 07:19 Patient: PIERRE ROQUE Sex: M : 1975 Age: 45y 02/08. --08:57 10/19/20 Dawn Pino R.N. Reassessment acuity: LEVEL 3. Rounding: Pain: assessed pain level. Position: repositioned. Proximity of possessions / care items: call light within easy reach. Plug ins: assured IV pump plugged in; checked status of equipment in use; located all cords, tubes, and lines to prevent fall hazard. Set expectations: advised patient of rounding protocol timing and asked if they needed anything else at this time. Reassessment after medication administered. Pain still present. Overall patient status is worse- he states feels worse. ( Pt states "it felt better for a little while but now it's back". Pt bent over in forward position with chest resting on pillow.). --08:57 10/19/20 Dawn Pino R.N. 08:57 10/19/2020 Morphine IVP 4 mg given diluted in NS 10mL over 4 minute(s) via site #1. Allergies verified and confirmed 5 rights. IV patency established. IV site checked: no pain, redness, or swelling. IV flushed thoroughly pre- and post-medication administration. IVP given by RN. Information reviewed with patient including reason for taking this medication, signs of allergic reaction, precautions and sedative warning. Verbalizes understanding. --08:57 10/19/20 Dawn Pino R.N. 10:00 10/19/2020 IV Fluids NS via IV site #1 Discontinued: STOPPED upon discharge. Total amount infused: 200 mL. IV patency established. IV site checked: no pain, redness, or swelling. IV flushed thoroughly. --10:00 10/19/20 Marcos Rossi RN 10:01 10/19/2020 Site #1 removed upon discharge. Catheter intact. Manual pressure and bandage applied. --10:01 10/19/20 Marcos Rossi RN.DISPOSITION / DISCHARGE Condition at departure: improved and stable. Discharge instructions provided and reviewed with the patient. Reviewed medication(s) side effects, precautions, dosing and course information. Prescription(s) sent electronically to pharmacy. Reviewed referral to a urologist. Patient verbalized understanding. Written instructions provided in Czech. The patient was discharged by the physician. He was discharged home and accompanied by spouse. He left ambulatory and via private vehicle. Spouse driving. --10:03 10/19/20 Marcos Rossi RN 10:02 10/19/20. BP: 124/71. MAP: 88. HR: 74. RR: 16. O2 saturation: 100%. Pain level now: 03/10. --10:03 10/19/20 Marcos Rossi RN.Locked/Released at 10/19/2020 21:52 by Marcos Rossi RN Name Value Range Interpretation Code Description Data Lucia rce(s) Supporting Document(s) ID Date Data Source [id number] 10/19/2020 07:32:00 AM EST [facility] 1 Clinical Report - Physicians/Mid Levels [facility] Emergency Department [address] [place] [address] Phone #: ext- [phone] 10/19/2020 07:19 [id number] Sex[facility] M : 1975 Age: 45y Time Seen: 07:21 10/19/2020; initial patient contact, initial documentation. Arrived- By private vehicle. Historian- patient. Disposition decision: 09:51 10/19/2020.HISTORY OF PRESENT ILLNESS Chief Complaint: RIGHT FLANK PAIN. 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 The problem is described as severe. No penile discharge, urinary frequency, genital lesion, testicular pain or urgency of urination. No [place] cat heter problem, inguinal swelling or problem with the foreskin. He has had discomfort with urination and flank pain. Able to void. Not voiding only small amounts. The patient has had no unprotected intercourse or not had an exposure to a sexually transmitted disease. Sexual history is noncontributory. (Patient has a history of kidney stone. last attack was 2 years ago. he states that he woke up and went to the bathroom to urinate and developed severe right sided flank pain. Pain described as sharp initially 15/10 in intensity "like peeing sand"). Similar symptoms previously.REVIEW OF SYSTEMSNo fever, chills, abdominal pain, vomiting or diarrhea. No black stools, bloody stools, headache, sorethroat or chest pain. No difficulty breathing, cough, joint pain, skin rash or back pain. The patient hashad flank pain. The patient has had hematuria. All other systems reviewed and are negative.PAST HISTORYHypertension. ( Kidney stone). Surgeries: No history of previous surgery. Additional Surgeries: no known surgeries. Medications: Telmisartan Oral 40 mg, daily. Chlorthalidone Oral (Tablet 25 mg) 1/2 tablet, daily. Allergies: ROBIN Inhibitors. Side-Effect Mild (Cough) Bees. Nuclear stress test. (dye??) Shellfish-derived Products.SOCIAL HISTORYNever smoker. No alcohol use or drug use. 2 Clinical Report - Physicians/Mid Levels [facility] Emergency Department [address] [place] [address] Phone #: ext- [phone] 10/19/2020 07:19 Patient: PIERRE ROQUE [facility]#: [id number] Sex: M : 1975 Age: 45yADDITIONAL NOTESThe nursing notes have been reviewed.PHYSICAL EXAMVital Signs: 10/19/2020 07:20 BP: 135/84. MAP: 101. HR: 75. RR: 20. O2 saturation: 100% on room air.Temp: 97.1 F. Oxygen saturation normal.Appearance: Alert. Oriented X3. Patient in moderate distress.ENT: Normal external inspection.Neck: Neck supple. No thyromegaly or lymphadenopathy.CVS: Heart sounds normal. Rate normal.Respiratory: No respiratory distress. Painless inspiration. Breath sounds normal. No crackles orwheezes.Abdomen: Soft and nontender. Bowel sounds normal. No organomegaly. No mass. Femoral pulsesequal.Back: Mild CVA tenderness on the right. Normal external inspection.Skin: Skin warm and dry. Normal skin color. No rash. Normal skin turgor.Extremities: Extremities exhibit normal ROM. No calf tenderness. No lower extremity edema.Neuro: Oriented X 3.LABS, X-RAYS, AND EKGCT Abdomen - Pelvis: Freddy motley Mike - 10/19/2020 8:26:26 AMMild right hydronephrosis secondary to a 2 mm right UVJ calculus. Cardiomegaly. Irregular prostate withcalcifications. Sherwin. The study was interpreted by the radiologist.Laboratory Tests: CBC w Diff: (KALPANA: 10/19/2020 07:46) ( MsgRcvd 10/19/2020 08:06) Final results Test Result Flag Units (Reference) CBC W/AUTOMATED DIFF COMPLETE BLOOD COUNT WBC 8.2 10/uL (4.2 - 11.0) RBC 5.32 10/uL (4.50 - 6.30) HEMOGLOBIN 16.2 H g/dL (14.0 - 16.0) HEMATOCRIT 45.6 % (41.0 - 51.0) MCV 85.7 fL (80.0 - 94.0) MCH 30.5 pg (27.0 - 34.0) MCHC 35.5 g/dL (31.0 - 36.0) RDW 12.4 % (11.5 - 14.8) PLATELETS 256 10/uL (150 - 450) MPV 9.2 fL (7.4 - 10.4) NEUT 46.3 % (37.0 - 80.0) LYMPH 38.4 % (25.0 - 40.0) MONO 11.1 H % (3.0 - 8.0) EOS 3.1 % (0.0 - 7.0) BASO 0.5 % (0.0 - 2.0) %IG 0.6 H % (0.0 - 0.0) %NRBC 0.0 % (0.0 - 0.0) #NEUT 3.78 10/uL (2.00 - 6.90) #LYMPH 3.14 10/uL (0.60 - 3.40) #MONO 0.91 H 10/uL (0.00 - 0.90) #EOS 0.25 10/uL (0.00 - 0.70) 3 Clinical Report - Physicians/Mid Levels [facility] Emergency Department [address] [place] [address] Phone #: ext- [phone] 10/19/2020 07:19 Patient: PIERRE ROQUE Sex: M : 1975 Age: 45y #BASO 0.04 10/uL (0.00 - 0.20) #IG 0.05 10/uL (0.00 - 0.10) #NRBC 0.00 10/uL (0.00 - 0.00) MANUAL DIFF NOT INDICATED RBC MORPH NOT INDICATEDCMP: (KALPANA: 10/19/2020 07:46) ( MsgRcvd 10/19/2020 08:44) Final results Test Result Flag Units (Reference) COMPREHENSIVE METABOLIC PANEL COMPREHENSIVE METABOLIC PANEL SODIUM 139 mEq/L (134 - 153) POTASSIUM 4.1 mEq/L (3.6 - 5.0) CHLORIDE 103 mEq/L (98 - 107) CO2 27 MEQ/L (22 - 30) GLUCOSE 126 H MG/DL (70 - 99) BUN 20 MG/DL (7 - 21) CREATININE 1.0 MG/DL (0.7 - 1.5) BUN/CREAT 20 (8 - 27) TOTAL PROTEIN 6.4 G/DL (6.3 - 8.2) ALBUMIN 3.9 G/DL (3.9 - 5.0) GLOBULIN 2.5 GM/DL (2.4 - 3.2) A/G RATIO 1.6 (0.8 - 2.0) CALCIUM 9.1 MG/DL (8.4 - 10.2) TOTAL BILI 1.1 MG/DL (0.2 - 1.3) ALKALINE PHOS 70 U/L (38 - 126) SGOT/AST 12 U/L (5 - 40) SGPT/ALT 11 U/L (7 - 56) ANION GAP 9.0 mmol/L (8.0 - 16.0) AGE 45 yrs NON- AA GFR >60 mL/min AFR AMER GFR >60 mL/min Male GFR Interprentation 20-49 yrs >60 mL/min [id number] yrs >56 mL/min Normal 60- 69 yrs >49 mL/min Normal 70-79yrs>42 mL/min Normal 80 and above >35 mL/min Normal Female GFRInterpretation 20-39 yrs >60 mL/min Normal 40-49 yrs >58 mL/minNormal 50-59 yrs >51 mL/min Normal 60-69 yrs >45 mL/min Fbuiih62-62 yrs >39 mL/min Normal 80 and above >32 mL/min NormalUrinalysis: (KALPANA: 10/19/2020 07:30) ( MsgRcvd 10/19/2020 07:51) Final results Test Result Flag Units (Reference) URINALYSIS URINALYSIS SOURCE R COLOR Yellow (NORMAL: Yello CLARITY Hazy (NORMAL: Clear SPEC GRAVITY 1.020 (1.001 - 1.030 pH 6.5 (5 - 9) GLUCOSE NORM (NORMAL: Negat BILIRUBIN 1 (NORMAL: Negat KETONE 5 A (NORMAL: Negat PROTEIN 30 (NORMAL: Negat NITRITE POS (NORMAL: Negat BLOOD 250 A (NORMAL: Negat LEUK EST 25 (NORMAL: Negat UROBILINOGEN 4 (less than 1.0 MICROSCOPIC See Below WBC 1 - 3 (NORMAL: NONE 4 Clinical Report - Physicians/Mid Levels [facility] Emergency Department [address] [place] [address] Phone #: ext- [phone] 10/19/2020 07:19 Patient: PIERRE ROQUE Sex: M : 1975 Age: 45y RBC 30 - 40 A (NORMAL: NONE EPITHELIAL FEW (NORMAL: NONE BACTERIA Trace (NORMAL: NONE.PROGRESS AND PROCEDURESCourse of Care: 08:17 10/19/20. patient given toradol and zofran which offered temporary relief. patient iscomplaining of severe pain again. ordered morphine and 8 mg of zofran 08:18 10/19/20. urinalysis showed microscopic blood but no leucocytes and no WBC 08:48 10/19/20. Patient still has pain. ct scan showed calculi on the right distal ureter measuring 3 mm. will given flomax as well as Morphine 4 mg second dose 09:52 10/19/20. Patient re evaluated and feels better after t the second dose of morphine. advised increased oral fluids as well as follow up wit urology. Disposition: Discharged home in good and improved condition (09:51). Condition: good and stable. Discharge decision based on the following: patient's condition is stable; patient's exam is stable; stable condition on multiple repeat evaluations; social support is adequate; transportation is available; follow-up is available; clinical impression is consistent with outpatient treatment.CLINICAL IMPRESSION Right renal colic in the right ureter with multiple calculi with hydronephrosis and hematuria.INSTRUCTIONS Drink plenty of fluids. (take the flomax daily. take motrin for moderate pain and percocet as needed for severe pain/ take zofran as needed for nausea. follow up wit urology DR Dahl on friday). Warnings: SEDATIVE MEDICATION: You were given sedative medication during your visit. Do not drive or operate dangerous machinery. GENERAL WARNINGS: Return or contact your physician immediately if your condition worsens or changes unexpectedly, if not improving as expected, or if other problems arise. Your Current Medications: Your current home medications have been reviewed. CONTINUE TAKING THE FOLLOWING MEDICATIONS: Chlorthalidone Oral : Tablet 25 mg, 1/2 tablet daily. Telmisartan Oral : 40 mg daily. 5 Clinical Report - Physicians/Mid Levels [facility] Emergency Department [address] [place] [address] Phone #: ext- [phone] 10/19/2020 07:19 -- Patient: PIERRE ROQUE Sex: M : 1975 Age: 45y Prescription Medications: Percocet 5 mg-325 mg tablet Take 1 tablet every six hours as needed for pain for 3 days -- Dispense 12 tablet. Refills: 0. Substitution permitted. [facility] [address] [id number]. . IBU 800 mg tablet Take 1 tablet three times a day for 15 days -- Dispense 45 tablet. Refills: 0. Substitution permitted. [facility] [address] [id number]. . Flomax 0.4 mg capsule Take 1 capsule single dose for 7 days -- Dispense 7 capsule. Refills: 0. Substitution permitted. [facility] [address] [phone]. . ondansetron 4 mg disintegrating tablet Take 1 tablet three times a day for 3 days -- prn nausea/vomiting. Dispense 9 tablet. Refills: 0. Substitution permitted. Pharmacy - [facility] - [address] [facility] ; [place], [place] [id number]. FaxNumber: . Follow-up: Blood pressure screening was not performed during this visit because the patient has an active diagnosis of hypertension. The patient should follow up with a primary care provider for blood pressure management. Follow-up with: Neo Dahl M.D., Urology, , [address] [place] [address], [id number] Follow up Friday. Call for the next available appointment. Reason for referral: evaluation. Summary of care provided to patient via paper.(Electronically signed by Estephania Carr 10/19/2020 23:54) Name Value Range Interpretation Code Description Data Lucia rce(s) Supporting Document(s) ID Date Data Source [id number] 10/19/2020 10:27:00 AM [facility] [address] [place] [address] PHONE: [phone] FAX: [phone] Name .................. : JUDE JAY Acct Number.................. : [id number] ROOM. ................. : TR-02 MR Number ................... : [id number] Stay type ............. : E/R Discharge Date......... ... : Admit Date ......... : 10/19/20 Admit Phys .................... : LILLY Date of ....... : 1975 Family Phys ................... : Phone .................. : [phone] Age ................................ : 45 Film# .................. .:[id number] Sex ................................. : M Unsigned transcriptions are preliminary reports and do not represent a medical or legal document CT ABD & PELV W/O ORAL W/[place] [id number] COMPLETE:10/19/20 07:33 4568 Reason(s): right flank pain hx of kidney stone CT ABDOMEN/PELVIS WITHOUT CONTRAST, 10/19/20: INDICATION: Right flank pain, history of kidney stones. FINDINGS: Lung bases are grossly clear. No focal infiltrate or consolidation is identified. The heart appears unremarkable. The liver shows a tiny cyst in the right hepatic lobe measuring approximately 5 mm. Gallbladder is within normal limits. Spleen appears unremarkable. Adrenal glands are normal. Pancreas is within normal limits. There is a tiny calculus in the right kidney at the mid pole measuring approximately 2 mm. This is not obstructive. The left kidney demonstrates calcifications at the lower pole, may be vascular in nature. These each measure approximately 3 mm in size. There are two calculi identified in the distal right ureter. The first is at the UVJ and measures approximately 3 mm. The second is just proximal to the first and measures approximately 2 mm. Mild prominence of the right ureter is identified with mild hydronephrosis present. No free fluid is identified. The prostate shows mild irregularity and measures approximately 5.5 cm, which is enlarged. Bilateral fat-containing inguinal hernias are present. Osseous structures show degenerative changes. IMPRESSION: Two calculi at the distal right ureter. One measures 3 mm. The second measures 2 mm. Mild hydronephrosis on the right. Bilateral non-obstructive renal calculi. While performing the above CT examination, radiation dose reduction was accomplished utilizing automated exposure control, adjusting of the mA and kV based on the patient's body size and/or the use of imperative reconstructive techniques. CT dose 846.5 mGycm. Examination dictated by ISIDORO Bojorquez. Examination was reviewed with Abdi Mckenzie MD, radiologist at the time of this dictation. Page 1 of [address] [place] [address] PHONE: [phone] FAX: [phone] Name .................. : JUDE JAY Acct Number.................. : [id number] ROOM. ................. : [facility] MR Number ................... : [id number] Stay type ............. : E/R Discharge Date......... ... : Admit Date ......... : 10/19/20 [facility] .................... [facility] Date of ....... : 1975 Family Phys ................... : Phone .................. : [phone] Age ................................ : 45 Film# .................. .:[id number] Sex . ................................ : M Unsigned transcriptions are preliminary reports and do not represent a medical or legal document CT ABD & PELV W/[place] ORAL W/[place] [id number] COMPLETE:10/19/20 07:33 4568 Reason(s): right flank pain hx of kidney stone Electronically Reviewed and Signed By Abdi Mckenzie MD , 10/19/20 10:27, AML Transcribe Initials: KAYLIN, Transcribe Date: 10/19/20 09:20, Dictation Date: Copy for: 010 EMERGENCY SRV Copy for: EMERGENCY DEPT via modem Copy for: 710 MED REC Page 2 of 2 Name Value Range Interpretation Code Description Data Lucia rce(s) Supporting Document(s) ID Date Data Source [id number] 10/19/2020 03:34:00 PM EST [facility] ([facility]) Name Value Range Interpretation Code Description Data Lucia rce(s) Supporting Document(s) Red Blood Count 5.32 4.50-6.30 [facility] ([facility]) White Blood Count 8.2 4.2-11.0 [facility] ([facility]) Hemoglobin 16.2 14.0-16.0 [facility] ([facility]) Hematocrit 45.6 41.0-51.0 [facility] ([facility]) Platelets 256 150-450 [facility] ID Date Data Source [id number] 10/19/2020 03:34:00 PM EST [facility] ([facility]) Name Value Range Interpretation Code Description Data Lucia rce(s) Supporting Document(s) Alanine aminotransferase [Enzymatic activity/volume] in Serum or Pl asma 11 [facility] ([facility]) Albumin [Mass/volume] in Serum or Plasma 3.9 [facility]) Calcium [Mass/volume] in Serum or Plasma 9.1 [facility] ([facility]) Carbon dioxide, total [Moles/volume] in Serum or Plasma 27 [facility] ([facility]) Alkaline phosphatase [Enzymatic activity/volume] in Serum or Plasma 7 0 [facility] ([facility]) Chloride [Moles/volume] in Serum or Plasma 103 [facility] ([facility]) Potassium [Moles/volume] in Serum or Plasma 4.1 [facility] ([facility]) Protein [Mass/volume] in Serum or Plasma 6.4 [facility] ([facility]) Aspartate aminotransferase [Enzymatic activity/volume] in Serum or Plasma 12 [facility]) Sodium 139 [facility] ([facility]) Urea nitrogen [Mass/volume] in Serum or Plasma 20 [facility]) Glucose 126 70-100 [facility] Creatinine For GFR 1.0 [facility] ([facility]) ID Date Data Source [id number] 10/19/2020 08:44:00 AM EST [facility] Name Value Range Interpretation Code Description Data Lucia rce(s) Supporting Document(s) COMPREHENSIVE METABOLIC PANEL [facility] COMPREHENSIVE METABOLIC PANEL Sodium [Moles/volume] in Serum or Plasma 139 mEq/L 134 - 153 [facility] Potassium [Moles/volume] in Serum or Plasma 4.1 mEq/L 3.6 - 5.0 [facility] Chloride [Moles/volume] in Serum or Plasma 103 mEq/L 98 - 107 [facility] Carbon dioxide, total [Moles/volume] in Serum or Plasma 27 MEQ/L 22 - 30 [facility] Glucose [Mass/volume] in Serum or Plasma 126 MG/DL 70 - 99 H [facility] BUN 20 MG[facility]DL 7 - [facility] Creatinine [Mass/volume] in Serum or Plasma 1.0 MG/DL 0.7 - 1.5 [facility] BUN/CREAT 20 8 - 27 [facility] al Protein [Mass/volume] in Serum or Plasma 6.4 G/DL 6.3 - 8.2 [facility] Albumin [Mass/volume] in Serum or Plasma 3.9 G/DL 3.9 - 5.0 [facility] Globulin [Mass/volume] in Serum by calculation 2.5 GM/DL 2.4 - 3.2 [facility] A/G RATIO 1.6 0.8 - 2.0 [facility] Calcium [Mass/volume] in Serum or Plasma 9.1 MG/DL 8.4 - 10.2 [facility] Bilirubin.total [Mass/volume] in Serum or Plasma 1.1 MG/DL 0.2 - 1.3 [facility] Alkaline phosphatase [Enzymatic activity/volume] in Serum or Plasma 70 U/L 38 - 126 [facility] Aspartate aminotransferase [Enzymatic activity/volume] in Serum or Plasma 12 U/L 5 - 40 [facility] Alanine aminotransferase [Enzymatic activity/volume] in Seru m or Plasma 11 U/L 7 - 56 [facility] Anion gap 3 in Serum or Plasma 9.0 mmol/L 8.0 - 16.0 [facility] AGE 45 yrs [facility] NON-AA GFR >60 mL/min [facility] AFR AMER GFR >60 mL/min [facility] Male GFR In terprentation 20-49 yrs >60 mL/min Normal 50-59 yrs >56 mL/min Normal 60-69 yrs >49 mL/min Normal 70-79yrs >42 mL/min Normal 80 and above >35 mL/min Normal Female GFR Interpretation 20-39 yrs >60 mL/min Normal 40-49 yrs >58 mL/min Normal 50-59 yrs >51 mL/min Normal 60-69 yrs >45 mL/min Normal 70-79 yrs >39 mL/min Normal 80 and above >32 mL/min Normal ID Date Data Source [id number] 10/19/2020 08:06:00 AM EST [facility] Name Value Range Interpretation Code Description Data Lucia rce(s) Supporting Document(s) CBC W/AUTOMATED DIFF [facility] COMPLETE BLOOD COUNT Leukocytes [#/volume] in Blood by Automated count 8.2 10^3/uL 4.2 - 1 1.0 [facility] Erythrocytes [#/volume] in Blood by Automated count 5.32 10^6/uL 4. 50 - 6.30 [facility] Hemoglobin [Mass/volume] in Blood 16.2 g/dL 14.0 - 16.0 H [facility] Hematocrit [Volume Fraction] of Blood by Automated count 45.6 % 4 1.0 - 51.0 [facility] Erythrocyte mean corpuscular volume [Entitic volume] by Auto mated count 85.7 fL 80.0 - 94.0 [facility] Erythrocyte mean corpuscular hemoglobin [Entitic mass] by Automated count 30.5 pg 27.0 - 34.0 [facility] Erythrocyte mean corpuscular hemoglobin concentration [Mass/volume] by Automated count 35.5 g/dL 31.0 - 36.0 [facility] Erythrocyte distribution width [Ratio] by Automated count 12.4 % 11.5 - 14.8 [facility] Platelets [#/volume] in Blood by Automated count 256 10^3/uL 150 - 45 0 [facility] Platelet mean volume [Entitic volume] in Blood by Automated count 9.2 fL 7.4 - 10.4 [facility] Neutrophils/100 leukocytes in Blood by Automated count 46.3 % 37. 0 - 80.0 [facility] Lymphocytes/100 leukocytes in Blood by Manual count 38.4 % 25.0 - 40.0 [facility] Monocytes/100 leukocytes in Blood by Automated count 11.1 % 3.0 - 8.0 H [facility] Eosinophils/100 leukocytes in Blood by Automated count 3.1 % 0.0 - 7.0 [facility] Basophils/100 leukocytes in Blood by Automated count 0.5 % 0.0 - 2.0 [facility] %IG 0.6 % 0.0 - 0.0 H [facility] %NRBC 0.0 % 0.0 - 0.0 [facility] Neutrophils [#/volume] in Blood by Automated count 3.78 10^3/uL 2.00 - 6.90 [facility] Lymphocytes [#/volume] in Blood by Automated count 3.14 10^3/uL 0.60 - 3.40 [facility] Monocytes [#/volume] in Blood by Automated count 0.91 10^3/uL 0.00 - 0.90 H [facility] Eosinophils [#/volume] in Blood by Automated count 0.25 10^3/uL 0.00 - 0.70 [facility] Basophils [#/volume] in Blood by Automated count 0.04 10^3/uL 0.00 - 0.20 [facility] #IG 0.05 10^3/uL 0.00 - 0.10 [facility] ospital #NRBC 0.00 10^3/uL 0.00 - 0.00 [facility]spital MANUAL DIFF NOT INDICATED [facility] RBC MORPH NOT INDICATED [facility] spital ID Date Data Source [id number] 10/23/2020 11:34:00 AM EST [facility] Name Value Range Interpretation Code Description Data Lucia rce(s) Supporting Document(s) CULTURE URINE [facility] _CULTURE URINE_$$[id number]$$[id number]$$[id number]$$[id number]$$957815$$293237$$[id number]$$968710$$554412$$ 655902$$572364$$432731$$896606$$615107$$549530$$867237$$729881$$901439$$293715$$ 937743$$346855$$757364$$125796$$721473$$300322$$109352$$[id number] -- Continued on next page --Patient: JUDE JAY Order: [id number] Page 2Culture: CULTURE URINE Status: Final ==== -- Continued on next page --Patient: JUDE JAY Order: [id number] Page 2Culture: CULTURE URINE Status: Prelim =====$$[id number]$$[id number] DATE/TIME: 10/23/2020 10:06Culture: CULTURE URINE Status: FinalUrine Culture,Comprehensive: P1No growth in 36 - 48 hours. Previous result entered on 10/21/2020 02:18 ET No growth after 18-24 hours.P1 Test performed by: Марина LOPEZ #: [id number] [address] [place] [address] Avenue [id number] [facility] [address]Medical Director : Samy Patel MD NPI #:Lab Theresa dakota : 10/[email or web address] REF 10/23/[id number].SENT REF ID Date Data Source [id number] 10/19/2020 07:51:00 AM EST [facility] Name Value Range Interpretation Code Description Data Lucia rce(s) Supporting Document(s) URINALYSIS [facility] [place] URINALYSIS SOURCE R [facility] COLOR Yellow NORMAL: Yellow [facility] CLARITY Hazy NORMAL: Clear [facility] Specific gravity of Urine by Test strip 1.020 1.001 - 1.030 [facility] pH 6.5 5 - 9 [facility] Glucose [Mass/volume] in Urine by Test strip NORM [facility]: [facility] Bilirubin.total [Presence] in Urine by Test strip 1 NORMAL: Negative [facility] Ketones [Presence] in Urine by Test strip 5 NORMAL: Negative [facility] Protein [Mass/volume] in Urine by Test strip 30 [facility] Nitrite [Presence] in Urine by Test strip POS NORMAL: Negative [facility] BLOOD 250 NORMAL: Negative [facility] Leukocyte esterase [Presence] in Urine by Test strip 25 JOHN L: Negative [facility] Urobilinogen [Mass/volume] in Urine by Test strip 4 less prashant n 1.0 mg/dL [facility] MICROSCOPIC See Below [facility] ital WBC 1 - 3 NORMAL: NONE SEEN [facility] Erythrocytes [#/volume] in Urine by Test strip 30 - 40 NORMAL: NON E SEEN A [facility] EPITHELIAL FEW NORMAL: NONE SEEN [facility] Bacteria [Presence] in Urine sediment by Light microscopy Tr robin NORMAL: NONE SEEN [facility] ID Date Data Source [id number] 07/25/2020 08:45:00 AM EST [facility] ([facility]) Name Value Range Interpretation Code Description Data Lucia rce(s) Supporting Document(s) Laboratory test finding (navigational concept) Laboratory test result [facility] ([facility]) ID Date Data Source [id number] 07/25/2020 08:45:00 AM EST [facility] ([facility] Name Value Range Interpretation Code Description Data Lucia rce(s) Supporting Document(s) Glucose 102 mg/dL 65-99 [facility] ([facility]) Urea nitrogen [Mass/volume] in Serum or Plasma 21 mg/dL 6-24 [facility] ([facility]) Creatinine 1.10 mg/dL 0.76-1.27 [facility] ([facility]) eGFR If Africn Am 93 mL/min/1.73 [facility] ([facility]) eGFR If NonAfricn Am 81 mL/min/1.73 MED[facility] NT ([facility]) Urea nitrogen/Creatinine [Mass Ratio] in Serum or Plasma 19 9 -20 [facility] ([facility]) Sodium 142 mmol/L 134-144 [facility]) Chloride [Moles/volume] in Serum or Plasma 106 mmol/L 96-106 [facility]) Potassium [Moles/volume] in Serum or Plasma 4.1 mmol/L 3.5-5.2 [facility] ([facility]) Calcium [Mass/volume] in Serum or Plasma 8.9 mg/dL 8.7-10.2 [facility] ([facility]) Carbon dioxide, total [Moles/volume] in Serum or Plasma 23 mmol/L 20 -29 [facility] ([facility]) ID Date Data Source [id number] 07/26/2020 06:05:00 AM EST [facility] Name Value Range Interpretation Code Description Data Lucia [facility](s) Supporting Document(s) Glucose 102 mg/dL 65-99 Above high normal [facility] BUN 21 mg/dL 6-24 [facility] Creatinine 1.10 mg/dL 0.76-1.27 [facility] eGFR If NonAfricn Am 81 mL/min/1.73 >59 [facility] eGFR If Africn Am 93 mL/min/1.73 >59 [facility] BUN/Creatinine Ratio 19 9-20 [facility] Sodium 142 mmol/L 134-144 [facility] Potassium 4.1 mmol/L 3.5-5.2 [facility] Chloride 106 mmol/L 96-106 [facility] Carbon Dioxide, Total 23 mmol/L 20-29 [facility] Calcium 8.9 mg/dL 8.7-10.2 [facility] Procedure Social History Code Duration Value Status Description Data Source(s ) Smoking 02/08/2021 12:00:00 AM EDT Patient has never smoked co mpleted Patient has never smoked [facility] ([facility]) Vital Signs ID Date Data Source UNK Name Value Range Interpretation Code Description Data Source(s) Body weight 186.00 [lb_av] 186.00 [lb_av] [facility] T ([facility]) Body height 69 [in_i] 69 [in_i] [facility] ([facility] 5'9" Body mass index (BMI) [Ratio] 27.5 kg/m2 27.5 k g/m2 [facility]) Systolic blood pressure--sitting 130 mm[Hg] 130 mm[Hg] [facility] ([facility]) Ra, large cuff Diastolic blood pressure--sitting 82 mm[Hg] 82 mm[Hg] [facility] ([facility]) Ra, large cuff Heart rate 88 /min 88 /min [facility] ([facility]) Body weight 188.00 [lb_av] 188.00 [lb_av] MED[facility] T ([facility]) Body weight 85.277 kg 85.277 kg [facility] ([facility]) Body height 68 [in_i] 68 [in_i] [facility] ([facility]) 5'8" Body mass index (BMI) [Ratio] 28.6 kg/m2 28.6 k g/m2 [facility] ([facility]) Body surface area Derived from formula 1.99 m2 1.99 m2 [facility] ([facility]) Oxygen saturation in Arterial blood by Pulse oximetry 97 % 97 % [facility] ([facility]) Diastolic blood pressure 86 mm[Hg] 86 mm[Hg] [facility] ([facility]) Systolic blood pressure 123 mm[Hg] 123 mm[Hg] M [facility]ENT ([facility]) Body weight 185.00 [lb_av] 185.00 [lb_av] [facility] T ([facility]) Body height 69 [in_i] 69 [in_i] [facility] ([facility] 5'9" Body mass index (BMI) [Ratio] 27.3 kg/m2 27.3 k g/m2 [facility] ([facility]) Heart rate 72 /min 72 /min [facility] ([facility]) regular Respiratory rate 16 /min 16 /min [facility] ( [facility]) nonlabored Systolic blood pressure--sitting 122 mm[Hg] 122 mm[Hg] [facility] ([facility]) Ra, large cuff Diastolic blood pressure--sitting 78 mm[Hg] 78 mm[Hg] [facility] ([facility]) Ra, large cuff Systolic blood pressure--supine 128 mm[Hg] 128 mm[Hg] [facility] ([facility]) Ra, large cuff Diastolic blood pressure--supine 82 mm[Hg] 82 mm[Hg] [facility] ([facility]) Ra, large cuff Systolic blood pressure 122 mm[Hg] 122 mm[Hg] M [facility] ([facility]) Ra, large cuff Diastolic blood pressure 80 mm[Hg] 80 mm[Hg] [facility] ([facility]) Ra, large cuff
[2021-08-10] MEDS ORDERED: LOSA50TA88 (08:56)
--- OUTSIDE RECORDS SUMMARY | 2021-08-10 11:34 | CCD ---
Author Author [facility] Organization [facility] Address Unknown Phone Unavailable Care Team Providers Care Machine I Coremaker Name Role Phone MANJIT, L LEO PA [...] Unavailable Unavailable Jia DAHL MD Unavailable Unavailable iJa DAHL MD Unavailable Unavailable Jia DAHL MD [...] Unavailable Unavailable Rita CARR MD Unavailable Unavailable Riat CARR MD Unavailable Unavailable Re-disclosure Warning The [...] is protected by Article 27-F of the [place] Public Health law. If you continue you may have access to information: Regarding HIV / AIDS; Provided by facilities licensed or operated by the [facility] Office of Mental Health; or Provided by the [facility] Office for People With Developmental Disabilities. If such information is present, then the following [facility] mandated warning applies: This information has been [...] law may result in a fine or skilled nursing sentence or both. A general authorization for the release of medical or other information is NOT sufficient authorization for further disc losure. Family History Family Member Name Family Member Gender Family Member Status Date o f Status Description Data Source(s) Unknown Male Problem [facility] ([facility]) Unknown Male Problem [facility] ([facility]) at age 64 Encounters Encounter Providers Location Date Indications Data Source(s ) Outpatient Attender: LEO CHAUDHRY Main Office 02/08/2021 0 8:15:00 AM EDT [facility] ([facility]) Outpatient Attender: NEO DAHL MD Family Practice 01/16/2021 10:00:0 0 AM EDT [facility] ([facility]) Outpatient Attender: NEO DAHL MD 01/17/20 09:53:00 AM EDT - 01/16/2021 09:53:00 AM EDT [facility] Emergency Attender: ESTEPHANIA CARR MD 10/19/2020 07:32:00 AM EST - 10/19/2020 10:03:00 AM EST [facility] Patient discharged. Outpatient Attender: LEO CHAUDHRY Main Office 08/08/2020 0 7:00:00 AM EST [facility] ([facility]) Medications Medication Brand Name Start Date Product Form Dose Route Admi nistrative Instructions Pharmacy Instructions Status Indications Reaction Description Data Source(s) Losartan Potassium 50 MG Oral Tablet Losartan Potassium 06/2021 12:00:00 AM EDT ORAL active [facility] ([facility]) 25 mg 07/26/2020 12:00:00 AM EST tablet 15 TAKE ONE-HALF TABLET BY MOUTH EVERY DAY TAKE ONE-HALF TABLET BY MOUTH EVERY DAY SOLD: 07/26/2020 [facility] 25 mg 07/26/2020 12:00:00 AM EST tablet 15 TAKE ONE-HALF TABLET BY MOUTH EVERY DAY TAKE ONE-HALF TABLET BY MOUTH EVERY DAY SOLD: 07/26/2020 [facility] Chlorthalidone 25 MG Oral Tablet Chlorthalidone 07/26/2020 12:00:00 A M EST ORAL active [facility] ([facility]) Spironolactone 25 MG Oral Tablet Spironolactone 07/26/2020 12:00:00 A M EST ORAL completed [facility] ([facility] telmisartan 40 MG Oral Tablet TELMISARTAN 03/29/2020 12:00:00 AM EDT tablet 90 TAKE ONE TABLET BY MOUTH AT BEDTIME TAKE ONE TABLET BY MOUTH AT BEDTIME SOLD: 07/07/2020 [facility] Insurance Providers Payer name Policy type / Coverage type Policy ID Covered green party ID Covered green party's relationship to obrien Policy Obrien Plan Information BCBS ARIANNA BULL PPO 302/[phone] [id number] SP [id number] [facility] [id number] 18 [id number] [facility] SHIELD -O/P CO [id number] 18 [id number] BLUE [facility] CO [id number] 18 [id number] [employer] BC-BS PPO [id number] SP [id number] [employer] [facility] BS [id number] 18 [id number] BLUE [facility] CO [id number] 18 [id number] [employer] BCBS B [id number] S [id number] [facility] Commercial [id number] Self V [id number] BCBS [employer] Commercial [id number] Self [id number] [employer] Commercial [id number] Self [id number] [employer] Commercial [id number] Self [id number] [employer]-BS PPO [id number] SP [id number] [employer] Ppo U/W Commercial [id number] Self V [id number] [employer] BC-BS PPO [id number] SP [id number] [facility] [id number] SP [id number] Problems, Conditions, and Diagnoses Code Display Name Description Problem Type Effective Dates Data Source(s) U71036 Personal history of urinary calculi Personal his tory of urinary calculi Diagnosis 10/19/2020 07:32:00 AM [facility] I10 Essential (primary) hypertension Essential (primary) h ypertension Diagnosis 10/19/2020 07:32:00 AM [facility] R319 Hematuria, unspecified Hematuria, unspecified Diagnosi s 10/19/2020 07:32:00 AM [facility] N132 Hydronephrosis with renal and ureteral c alculous obstruction Hydronephrosis with renal and ureteral calculous obstruction Diagnosis 10/19/19 07:32:00 AM [facility] R109 Unspecified abdominal pain Unspecified abdominal pain Diagnosis 10/19/2020 07:32:00 AM [facility] Surgeries/Procedures Procedure Description Date Indications Data Source(s) ECG ROUTINE ECG W/LEAST 12 LDS W/I&R 02/08/2021 12:00: 00 AM EDT [facility] ([facility]) Results ID Date Data Source [id number] 01/16/2021 02:07:00 PM EDT [facility] ([facility]) Name Value Range Interpretation Code Description Data Lucia rce(s) Supporting Document(s) Appearance of Urine Laboratory test result [facility] ([facility]) Color of Urine Laboratory test result [facility] ([facility]) pH of Urine by Test strip 7 5-9 MEDE NT ([facility]) Spec [place] 1.015 1.001-1.030 [facility] ([facility]) Nitrate [Presence] in Urine Laboratory test result [facility] ([facility]) Leukocytes Laboratory test result [facility] ([facility]) Inhouse Glucose Laboratory test result [facility] ([facility]) Protein [Presence] in Urine by Test strip Laboratory test result [facility] ([facility]) Urobilinogen Laboratory test result [facility] ([facility]) Ketones [Presence] in Urine by Test strip Laboratory test result [facility] ([facility]) Bilirubin.total [Presence] in Urine by Test strip Laboratory test res ult [facility] ([facility]) Blood type and Indirect antibody screen panel - Blood Laboratory test result [facility] ([facility]) ID Date Data Source [id number] 01/16/2021 10:34:00 AM EDT [facility] ([facility]) Name Value Range Interpretation Code Description Data Lucia rce(s) Supporting Document(s) Abdomen XR 1 View Laboratory test result [facility] ([facility]) ID Date Data Source [id number] 10/19/2020 07:32:00 AM EST [facility] 1 OrderSheet [facility] Emergency Department [address] [place] [address] Phone #: eli- [phone] 10/19/2020 07:19 Patient: PIERRE ROQUE Sex: M : 1975 Age: 45yWEIGHT:85.2 kg (S) HEIGHT:69 inches (S) BMI:27.8ALLERGIES: ROBIN Inhibitors, Bees, Nuclear stress test, Shellfish-derived ProductsCHIEF COMPLAINT: flank pain:, RtDIAGNOSIS: Renal colicLAB ORDERSOrder Description Priority Entered Acknowledged InitialedCBC w Diff STAT 07:10/19/2020 07:46 Lilly Pino Victoria Jennifer R.N. ;CMP STAT 07:10/19/2020 07:46 Lilly Pino Victoria Jennifer R.N. ;Urinalysis (Clean STAT 07:10/19/2020 07:29 [place],Catch) Estephania Carr R.N. ;DIAGNOSTIC STUDY ORDERSOrder Description Priority Entered Acknowledged Ini tialedCT ABD PEL W/O STAT 07:10/19/2020 Ack'd: 07:29 07:58 [place],Oral W/O IV Estephania Carr Jennifer Jennifer R.N.Contrast [...] (NOW Estephania Carr, Dawn Nevarez 2 OrderSheet [facility] Emergency Department [address] [place] [address] Phone #: ext- [phone] 10/19/2020 07:19 Patient: PIERRE ROQUE Sex: M : 1975 Age: 45yx1) ; R.N.Zofran IVP 8 mg 08:14 10/19/2020 08:19 [place],(NOW x1) Krishna Gandhi ; Dawn Nevarez Verbal order per; Estephania CarrMorphine IVP 4 mg 08:14 10/19/2020 08:21 [place],(NOW x1, HIGH Krishna Gandhi ; Dawn NevarezALERT Verbal order per;MEDICATION) Estephania CarrMorphine IVP 4 mg 08:47 10/19/2020 08:57 [place],(HIGH ALERT Estephania Carr R.N.MEDICATION) ;Flomax PO 0.4 mg 08:47 10/19/2020 08:55 [place],(NOW x1, Do not Estephania Carr R.N.crush or chew) ;GENERAL ORDERSOrder Description Priority Entered Acknowledged Initialed[Electronically signed by Marcos Rossi RN (21:52 10/19/2020)][Electronically signed by Estephania Carr (23:54 10/19/2020)][Electronically locked by Marcos Rossi RN (21:52 10/19/2020)] Name Value Range Interpretation Code Description Data Lucia rce(s) Supporting Document(s) ID Date Data Source [id number] 10/19/2020 07:32:00 AM EST [facility] 1 Medication Reconciliation Report [facility] Emergency Department [address] [place] [address] Phone #: [phone]- [phone] 10/19/2020 07:19 Patient: PIERRE ROQUE Sex: M [...] days -- Dispense 12tablet. Refills: 0. Substitution permitted.[facility] [address] [place] [address] ; [place], [place] [phone]. . 2 Medication Reconciliation Report [facility] Emergency Department [address] [place] [address] Phone #: ext- [phone] 10/19/2020 07:19 Patient: PIERRE ROQUE Sex: M : 1975 Age: 45yIBU 800 mg tablet Take 1 tablet three times a day for 15 days -- Dispense 45 tablet. Refills: 0.Substitution permitted.[facility] [address] [place] [phone]. .Flomax 0.4 mg capsule Take 1 capsule single dose for 7 days -- Dispense 7 capsule. Refills: 0.Substitution permitted.[facility] [address] [phone]. .ondansetron 4 mg disintegrating tablet Take 1 tablet three times a day for 3 days -- prn nausea/vomiting.Dispense 9 tablet. Refills: 0. Substitution permitted.[facility] [address] [place] [phone]. . -- Estephania Carr Name Value Range Interpretation Code Description Data Lucia rce(s) Supporting Document(s) ID Date Data Source [id number] 10/19/2020 07:32:00 AM EST [facility] 1 Medication Administration Record [facility] Emergency Department [address] [place] [address] Phone #: ext- [phone] 10/19/2020 07:19 [id number] Sex[facility] M : 1975 Age: 45yWeight: 85.2 kgHeight/Length: 69 inBMI: 27.8ALLERGIES: Nuclear stress test, Bees, Shellfish-derived Products, ROBIN Inhibitors Date/Time Medication Administered Medication OrderedStart NS [IV] NS IV : Bolus 1000 mL, then 49666:39 10/19/2020 Dose: IV Fluids mL/hrSierra Acosta R.N. Bolus: 1000 mL over 1 hour(s)---- Dispensed: 1000 mL bagStop Site: #1 right AC10:00 1PRoderick Emmanuel TORADOL [IVP] (KETOROLAC Toradol IVP 30 mg [...] rce(s) Supporting Document(s) ID Date Data Source [id number] 10/19/2020 07:32:00 AM EST [facility] 1 General Instructions [facility] Emergency Department [address] [place] [address] Phone #: ext- [phone] 10/19/2020 07:19 Patient: [...] Dispense 12tablet. Refills: 0. Substitution permitted.Pharmacy - [facility] [address] [place], [place] [phone]. .IBU 800 mg tablet Take 1 tablet three times a day for 15 days -- Dispense 45 tablet. Refills: 0.Substitution permitted.[facility] [address] ; [place] [phone]. .Flomax 0.4 mg capsule Take 1 capsule single dose for 7 days -- Dispense 7 capsule. Refills: 0.Substitution permitted.[facility] [address] ; [place], [place] [phone]. FaxNumber: .ondansetron 4 mg disintegrating tablet Take 1 tablet three times a day for 3 days -- prn nausea/vomiting.Dispense 9 tablet. Refills: 0. Substitution permitted.[facility] [address] ; [place], [place] [phone]. . 2 General Instructions [facility] Emergency Department [address] [place] [address] Phone #: ext- [phone] 10/19/2020 07:19 [id number] Sex: M : 1975 Age: 45yFollow-up:Blood pressure screening was not performed during this visit because the patient has an active diagnosisof hypertension. The patient should follow up with a primary care provider for blood pressure management.Follow-up with: Neo Dahl M.D., Urology, , [address] [place] [address], [phone] Follow up Friday. Call for the next [...] oxalate but also some 3 General Instructions [facility] Emergency Department [address] [place] [address] Phone #: ext- [phone] 10/19/2020 07:19 Patient: [...] for preventing another calcium 4 General Instructions [facility] Emergency Department [address] [place] [address] Phone #: ext- [phone] 10/19/2020 07:19 Patient: PIERRE ROQUE Sex: M [...] may affect your care.Call [phone] General [facility] Emergency Department [address] [place] [address] Phone #: ext- [phone] 10/19/2020 07:19 Patient: [...] for 8 hours and increasing bladder pressure [phone] [employer]. [address] [place] [address]. All rights reserved. This information is not intended as asubstitute for professional medical care. Always follow your healthcare professional's instructions. You have been given the following additional information: Kidney Stone w/ Colic(Electronically signed by Estephania Carr 10/19/2020 23:54) Name Value Range Interpretation Code Description Data Lucia rce(s) Supporting Document(s) ID Date Data Source [id number] 10/19/2020 07:32:00 AM EST [facility] 1 Clinical Report - Nurses [facility] Emergency Department [address] [place] [address] Phone #: ext- [phone] 10/19/2020 07:19 Patient: PIERRE ROQUE Sex: M : 1975 Age: 45yTRIAGEArrived by private vehicle. Historian: patient. Unaccompanied.Triage time: late entry - 07 10/19/2020. Acuity: LEVEL 3.Chief Complaint: FLANK PAIN.Alert.This started today. Onset. (15 minutes ago). ( Pt states he has a large history of multiple kidney stonesin the past. Pt states this morning he started having right sided flank pain, after trying to void this morningand had painful urination.). The patient has had nausea. 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 BMI: 27.8. --07:18 10/19/20 Dawn iPno R.N.MedicationsChlorthalidone Oral (Tablet 25 mg) 1/2 tablet, [...] 10/19/20 Dawn Pino R.N. .AllergiesShellfish-derived Products. --07:26 2/18/21 Dawn Pino R.N.Bees. --07:26 10/19/20 Dawn Pino R.N.Nuclear stress test. (dye??) --07:26 10/19/20 Dawn Pino R.N.ROBIN Inhibitors. Side-Effect Mild (Cough) --08:16 10/19/20 Krishna Gandhi. 2 Clinical Report - Nurses [facility] Emergency Department [address] [place] [address] Phone #: ext- [phone] 10/19/2020 07:19 ----- Patient: PIERRE ROQUE Sex: [...] assessment completed. No skin integrity risk identified. --10/19/20 Dawn Pino R.N. Interventions Identification band on patient. --10/19/20 Dawn Pino R.N.PHYSICAL ASSESSMENTAmbulatory to room.GENERAL / NEURO / PSYCH: Alert. Oriented X 4. Appears in pain.HEENT: Mucous membranes are pink. 3 Clinical Report - Nurses [facility] Emergency Department [address] [place] [address] Phone #: ext- [phone] 10/19/2020 07:19 Patient: [...] to CT by wheelchair with mask and electronics repair technician. --07:58 10/19/20 Dawn Pino R.N. late entry - 08:03 10/19/20. Patient returned from CT by wheelchair with mask and electronics repair technician. --08:06 10/19/20 Dawn Pino R.N. 4 Clinical Report - Nurses [facility] Emergency Department [address] [place] [address] Phone #: ext- [phone] 10/19/2020 07:19 -------- Patient: PIERRE ROQUE Sex: [...] level now: 5 Clinical Report - Nurses [facility] Emergency Department [address] [place] [address] Phone #: ext- [phone] 10/19/2020 07:19 Patient: PIERRE ROQUE Sex: M [...] Patient verbalized understanding. Written instructions provided in Belgian. The patient was discharged by the physician. [...] rce(s) Supporting Document(s) ID Date Data Source [id number] 10/19/2020 07:32:00 AM EST [facility] 1 Clinical Report - Physicians/Mid Levels [facility] Emergency Department [address] [place] [address] Phone #: ext- [phone] 10/19/2020 07:19 [id number] Sex: M : 1975 Age: 45y Time Seen: 07:21 10/19/2020; initial patient contact, initial documentation. Arrived- By private vehicle. Historian- patient. Disposition decision: 09:51 10/19/2020.HISTORY OF PRESENT ILLNESS Chief Complaint: RIGHT FLANK PAIN. 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 The problem is [...] use. 2 Clinical Report - Physicians/Mid Levels [facility] Emergency Department [address] [place] [address] Phone #: ext- [phone] 10/19/2020 07:19 [id number] Sex: M : 1975 Age: 45yADDITIONAL NOTESThe [...] 0.70) 3 Clinical Report - Physicians/Mid Levels [facility] Emergency Department [address] [place] [address] Phone #: ext- [phone] 10/19/2020 07:19 Patient: [...] Male GFR Interprentation 20-49 yrs >60 mL/min Ngijop28-86 yrs >56 mL/min Normal 60- 69 yrs >49 mL/min Normal 70-79yrs>42 mL/min Normal 80 and above >35 mL/min Normal Female GFRInterpretation 20-39 yrs >60 mL/min Normal 40-49 yrs >58 mL/minNormal 50-59 yrs >51 mL/min Normal 60-69 yrs >45 mL/min Qmitby24-66 yrs >39 mL/min Normal 80 and above [...] NONE 4 Clinical Report - Physicians/Mid Levels [facility] Emergency Department [address] [place] [address] Phone #: ext- [phone] 10/19/2020 07:19 Patient: [...] daily. 5 Clinical Report - Physicians/Mid Levels [facility] Emergency Department [address] [place] [address] Phone #: ext- [phone] 10/19/2020 07:19 -- Patient: PIERRE ROQUE Sex: M : 1975 Age: 45y Prescription Medications: Percocet 5 mg-325 mg tablet Take 1 tablet every six hours as needed for pain for 3 days -- Dispense 12 tablet. Refills: 0. Substitution permitted. [facility] [address] [phone]. . IBU 800 mg tablet Take 1 tablet three times a day for 15 days -- Dispense 45 tablet. Refills: 0. Substitution permitted. [facility] [address] [phone]. . Flomax 0.4 mg capsule Take 1 capsule single dose for 7 days -- Dispense 7 capsule. Refills: 0. Substitution permitted. [facility] [address] [phone]. . ondansetron 4 mg disintegrating tablet Take 1 tablet three times a day for 3 days -- prn nausea/vomiting. Dispense 9 tablet. Refills: 0. Substitution permitted. Pharmacy - [facility] [address] - [address] [facility] ; [place], [place] [phone]. FaxNumber: . Follow-up: Blood pressure screening was not performed during this visit because the patient has an active diagnosis of hypertension. The patient should follow up with a primary care provider for blood pressure management. Follow-up with: Neo Dahl M.D., Urology, , [address] [place] [address], [phone] Follow up Friday. Call for the next available appointment. Reason for referral: evaluation. Summary of care provided to patient via paper.(Electronically signed by Estephania Carr 10/19/2020 23:54) Name Value Range Interpretation Code Description Data Lucia rce(s) Supporting Document(s) ID Date Data Source [id number] 10/19/2020 10:27:[address] [facility] [address] [place] [address] PHONE: [phone] FAX: [phone] Name .................. : JUDE JAY Acct Number.................. : [id number] ROOM. ................. : TR-02 MR Number ................... : [id number] Stay type ............. : E/R Discharge Date......... ... : Admit Date ......... : 10/19/20 Admit Phys .................... : LILLY Date of ....... : 1975 Family Phys ................... : Phone .................. : [phone] Age ................................ : 45 Film# .................. .:[id number] Sex ................................. : M Unsigned transcriptions are preliminary reports and do not represent a medical or legal document CT ABD & PELV W/[place] OR[place] W/[place] [address] COMPLETE:10/19/20 07:33 4568 Reason(s): right flank pain [...] of this dictation. Page 1 of 2 [place] [address] PHONE: [phone] FAX: [phone] Name .................. : JUDE JAY Acct Number.................. : [id number] ROOM. ................. : [facility] MR Number ................... : [id number] Stay type ............. : E/R Discharge Date......... ... : Admit Date ......... : 10/19/20 Admit Phys .................... : [facility] Date of ....... : 1975 Family Phys ................... : Phone .................. : [phone] Age ................................ : 45 Film# .................. .:[id number] Sex . ................................ : M Unsigned transcriptions are preliminary reports and do not represent a medical or legal document CT ABD & PELV W/[place] ORAL W/[place] [address] COMPLETE:10/19/20 07:33 4568 Reason(s): right flank pain hx of kidney stone Electronically Reviewed and Signed By Abdi Mckenzie MD , 10/19/20 10:27, AML Transcribe Initials: SSR, Transcribe Date: 10/19/20 09:20, Dictation Date: Copy for: 010 EMERGENCY SRV Copy for: EMERGENCY DEPT via modem Copy for: 710 MED REC Page 2 of 2 Name Value Range Interpretation Code Description Data Lucia rce(s) Supporting Document(s) ID Date Data Source [id number] 10/19/2020 03:34:00 PM EST [facility] ([facility] Name Value Range Interpretation Code Description Data Lucia rce(s) Supporting Document(s) Red Blood Count 5.32 4.50-6.30 [facility] ([facility]) White Blood Count 8.2 4.2-11.0 [facility] ([facility]) Hemoglobin 16.2 14.0-16.0 [facility] ([facility]) Hematocrit 45.6 41.0-51.0 [facility] ([facility]) Platelets 256 150-450 [facility] ID Date Data Source [id number] 10/19/2020 03:34:00 PM EST [facility] ([facility]) Name Value Range Interpretation Code Description Data Lucia rce(s) Supporting Document(s) Alanine aminotransferase [Enzymatic activity/volume] in Serum or Pl asma 11 [facility] ([facility]) Albumin [Mass/volume] in Serum or Plasma 3.9 [facility] ([facility]) Calcium [Mass/volume] in Serum or Plasma 9.1 [facility] ([facility]) Carbon dioxide, total [Moles/volume] in Serum or Plasma 27 [facility] ([facility]) Alkaline phosphatase [Enzymatic activity/volume] in Serum or Plasma 7 0 [facility] ([facility]) Chloride [Moles/volume] in Serum or Plasma 103 [facility] ([facility]) Potassium [Moles/volume] in Serum or Plasma 4.1 [facility] ([facility]) Protein [Mass/volume] in Serum or Plasma 6.4 [facility] ([facility]) Aspartate aminotransferase [Enzymatic activity/volume] in Serum or Plasma 12 [facility] ([facility]) Sodium 139 [facility] Urea nitrogen [Mass/volume] in Serum or Plasma 20 [facility] Glucose 126 70-100 [facility] Creatinine For GFR 1.0 [facility] ([facility]) ID Date Data Source [id number] 10/19/2020 08:44:00 AM EST [facility] Name Value Range Interpretation Code Description Data Lucia rce(s) Supporting Document(s) COMPREHENSIVE METABOLIC PANEL [facility] COMPREHENSIVE METABOLIC PANEL Sodium [Moles/volume] in Serum or Plasma 139 mEq/L 134 - 153 [facility] Potassium [Moles/volume] in Serum or Plasma 4.1 mEq/L 3.6 - 5.0 [facility] Chloride [Moles/volume] in Serum or Plasma 103 mEq/L 98 - 107 [facility] Carbon dioxide, total [Moles/volume] in Serum or Plasma 27 MEQ/L 22 - 30 [facility] Glucose [Mass/volume] in Serum or Plasma 126 MG/DL 70 - 99 H [facility] BUN 20 MG/DL 7 - [facility] Creatinine [Mass/volume] in Serum or Plasma 1.0 MG/DL 0.7 - 1.5 [facility] BUN/CREAT 20 8 - 27 [facility] al Protein [Mass/volume] in Serum or Plasma 6.4 G/DL 6.3 - 8.2 [facility] Albumin [Mass/volume] in Serum or Plasma 3.9 G/DL 3.9 - 5.0 [facility] Globulin [Mass/volume] in Serum by calculation 2.5 GM/DL 2.4 - 3.2 [facility] A/G RATIO 1.6 0.8 - 2.0 [facility] Calcium [Mass/volume] in Serum or Plasma 9.1 MG/DL 8.4 - 10.2 [facility] Bilirubin.total [Mass/volume] in Serum or Plasma 1.1 MG/DL 0.2 - 1.3 [facility] Alkaline phosphatase [Enzymatic activity/volume] in Serum or Plasma 70 U/L 38 - 126 [facility] Aspartate aminotransferase [Enzymatic activity/volume] in Serum or Plasma 12 U/L 5 - 40 [facility] Alanine aminotransferase [Enzymatic activity/volume] in Seru m or Plasma 11 U/L 7 - 56 [facility] Anion gap 3 in Serum or Plasma 9.0 mmol/L 8.0 - 16.0 [facility] AGE 45 yrs [facility] NON-AA GFR >60 mL/min [facility] ital AFR AMER GFR >60 mL/min [facility] spital Male GFR In terprentation 20-49 [...] >32 mL/min Normal ID Date Data Source [id number] 10/19/2020 08:06:00 AM EST [facility] Name Value Range Interpretation Code Description Data Lucia rce(s) Supporting Document(s) CBC W/AUTOMATED DIFF [facility] COMPLETE BLOOD COUNT Leukocytes [#/volume] in Blood by Automated count 8.2 10^3/uL 4.2 - 1 1.0 [facility] Erythrocytes [#/volume] in Blood by Automated count 5.32 10^6/uL 4. 50 - 6.30 [facility] Hemoglobin [Mass/volume] in Blood 16.2 g/dL 14.0 - 16.0 H [facility] Hematocrit [Volume Fraction] of Blood by Automated count 45.6 % 4 1.0 - 51.0 [facility] Erythrocyte mean corpuscular volume [Entitic volume] by Auto mated count 85.7 fL 80.0 - 94.0 [facility] Erythrocyte mean corpuscular hemoglobin [Entitic mass] by Automated count 30.5 pg 27.0 - 34.0 [facility] Erythrocyte mean corpuscular hemoglobin concentration [Mass/volume] by Automated count 35.5 g/dL 31.0 - 36.0 [facility] Erythrocyte distribution width [Ratio] by Automated count 12.4 % 11.5 - 14.8 [facility] Platelets [#/volume] in Blood by Automated count 256 10^3/uL 150 - 45 0 [facility] Platelet mean volume [Entitic volume] in Blood by Automated count 9.2 fL 7.4 - 10.4 [facility] Neutrophils/100 leukocytes in Blood by Automated count 46.3 % 37. 0 - 80.0 [facility] Lymphocytes/100 leukocytes in Blood by Manual count 38.4 % 25.0 - 40.0 [facility] Monocytes/100 leukocytes in Blood by Automated count 11.1 % 3.0 - 8.0 H [facility] Eosinophils/100 leukocytes in Blood by Automated count 3.1 % 0.0 - 7.0 [facility] Basophils/100 leukocytes in Blood by Automated count 0.5 % 0.0 - 2.0 [facility] %IG 0.6 % 0.0 - 0.0 [facility] %NRBC 0.0 % 0.0 - 0.0 [facility] al Neutrophils [#/volume] in Blood by Automated count 3.78 10^3/uL 2.00 - 6.90 [facility] Lymphocytes [#/volume] in Blood by Automated count 3.14 10^3/uL 0.60 - 3.40 [facility] Monocytes [#/volume] in Blood by Automated count 0.91 10^3/uL 0.00 - 0.90 H [facility] Eosinophils [#/volume] in Blood by Automated count 0.25 10^3/uL 0.00 - 0.70 [facility] Basophils [#/volume] in Blood by Automated count 0.04 10^3/uL 0.00 - 0.20 [facility] #IG 0.05 10^3/uL 0.00 - 0.10 [facility] ospital #NRBC 0.00 10^3/uL 0.00 - 0.00 [facility]ital MANUAL DIFF NOT INDICATED [facility] RBC MORPH NOT INDICATED [facility] spital ID Date Data Source [id number] 10/23/2020 11:34:00 AM EST [facility] Name Value Range Interpretation Code Description Data Lucia rce(s) Supporting Document(s) CULTURE URINE [facility] spital _CULTURE URINE_$$[id number]$$[id number]$$[id number]$$[id number]$$[id number]$$[id number]$$022307$$[id number]$$614856$$ 522855$$686504$$501853$$979657$$258458$$475366$$644499$$765557$$107563$$762089$$ 486302$$089038$$400312$$364365$$898447$$091614$$777993$$409009 -- Continued on next page --Patient: JUED JAY Order: [id number] Page 2Culture: CULTURE URINE Status: Final ==== -- Continued on next page --Patient: JUDE JAY Order: [id number] Page 2Culture: CULTURE URINE Status: Prelim =====$$[id number] DATE/TIME: 10/23/2020 10:06Culture: CULTURE URINE Status: FinalUrine Culture,Comprehensive: P1No growth in 36 - 48 hours. Previous result entered on 10/21/2020 02:18 ET No growth after 18-24 hours.P1 Test performed by: LabMary[facility] LOPEZ #: [id number] [address] [place] [address] [address] [id number] [facility] [address]Medical Director : Samy Patel MD NPI #:Lab Di [place] : [email or web address] REF 10/[id number].SENT REF ID Date Data Source [id number] 10/19/2020 07:51:00 AM EST [facility] Name Value Range Interpretation Code Description Data Lucia rce(s) Supporting Document(s) [facility] R [facility] COL[facility] Yellow NORMAL: Yellow [facility] CLARITY Hazy NORMAL: Clear [facility] Specific gravity of Urine by Test strip 1.020 1.001 - 1.030 [facility] pH 6.5 5 - 9 [facility] Glucose [Mass/volume] in Urine by Test strip NORM NORMAL: Negat [facility] Bilirubin.total [Presence] in Urine by Test strip 1 NORMAL: Negative [facility] Ketones [Presence] in Urine by Test strip 5 NORMAL: Negative [facility] Protein [Mass/volume] in Urine by Test strip [facility] Nit[facility] [Presence] in Urine by Test strip POS NORMAL: Negative [facility] BLOOD 250 NORMAL: Negative [facility] Leukocyte esterase [Presence] in Urine by Test strip 25 JOHN L: Negative [facility] Urobilinogen [Mass/volume] in Urine by Test strip 4 less prashant n 1.0 mg/dL [facility] MICROSCOPIC See Below [facility] WBC 1 - 3 NORMAL: NONE SEEN [facility] Erythrocytes [#/volume] in Urine by Test strip 30 - 40 NORMAL: NON E SEEN [facility] EPITHELIAL FEW NORMAL: NONE SEEN [facility] Bacteria [Presence] in Urine sediment by Light microscopy Tr robin NORMAL: NONE SEEN [facility] ID Date Data Source [id number] 07/25/2020 08:45:00 AM EST [facility] Name Value Range Interpretation Code Description Data Lucia rce(s) Supporting Document(s) Laboratory test finding (navigational concept) Laboratory test result [facility] ([facility]) ID Date Data Source [id number] 07/25/2020 08:45:00 AM EST [facility] Name Value Range Interpretation Code Description Data Lucia rce(s) Supporting Document(s) Glucose 102 mg/dL 65-99 [facility] ([facility]) Urea nitrogen [Mass/volume] in Serum or Plasma 21 mg/dL 6-24 [facility] ([facility]) Creatinine 1.10 mg/dL 0.76-1.27 [facility] ([facility]) eGFR If Africn Am 93 mL/min/1.73 [facility] ([facility]) eGFR If NonAfricn Am 81 mL/min/1.73 MEDE NT ([facility]) Urea nitrogen/Creatinine [Mass Ratio] in Serum or Plasma 19 9 -20 [facility] ([facility]) Sodium 142 mmol/L 134-144 [facility] ([facility]) Chloride [Moles/volume] in Serum or Plasma 106 mmol/L 96-106 [facility] ([facility]) Potassium [Moles/volume] in Serum or Plasma 4.1 mmol/L 3.5-5.2 [facility] ([facility]) Calcium [Mass/volume] in Serum or Plasma 8.9 mg/dL 8.7-10.2 [facility] ([facility]) Carbon dioxide, total [Moles/volume] in Serum or Plasma 23 mmol/L 20 -29 [facility] ([facility]) ID Date Data Source [id number] 07/26/2020 06:05:00 AM EST [facility] Name Value Range Interpretation Code Description Data Lucia e(s) Supporting Document(s) Glucose 102 mg/dL 65-99 Above [...] mpleted Patient has never smoked [facility] ([facility]) Vital Signs ID Date Data Source UNK Name Value Range Interpretation Code Description Data Source(s) Body weight 186.00 [lb_av] 186.00 [lb_av] [facility] T ([facility]) Body height 69 [in_i] 69 [in_i] [facility] ([facility]) 5'9" Body mass index (BMI) [Ratio] 27.5 kg/m2 27.5 k g/m2 [facility] ([facility]) Systolic blood pressure--sitting 130 mm[Hg] 130 mm[Hg] [facility] ([facility]) Ra, large cuff Diastolic blood pressure--sitting 82 mm[Hg] 82 mm[Hg] [facility] Ra, large cuff Heart rate 88 /min 88 /min [facility] ([facility]) Oxygen saturation in Arterial blood by Pulse oximetry 97 % 97 % [facility] ([facility]) Body weight 85.277 kg 85.277 kg [facility] ([facility]) Body weight 188.00 [lb_av] 188.00 [lb_av] [facility] T ([facility]) Systolic blood pressure 123 mm[Hg] 123 mm[Hg] M [facility]ENT ([facility]) Body height 68 [in_i] 68 [in_i] [facility] ([facility]) 5'8" Diastolic blood pressure 86 mm[Hg] 86 mm[Hg] [facility] ([facility]) Body mass index (BMI) [Ratio] 28.6 kg/m2 28.6 k g/m2 [facility] ([facility]) Body surface area Derived from formula 1.99 m2 1.99 m2 [facility] ([facility]) Body weight 185.00 [lb_av] 185.00 [lb_av] [facility] T ([facility]) Body height 69 [in_i] 69 [in_i] [facility] ([facility]) 5'9" Body mass index (BMI) [Ratio] 27.3 kg/m2 27.3 k g/m2 [facility] ([facility]) Heart rate 72 /min 72 /min [facility] ([facility]) regular Respiratory rate 16 /min 16 /min [facility] ( [facility]) nonlabored Systolic blood pressure--sitting 122 mm[Hg] 122 mm[Hg] [facility] ([facility]) Ra, large cuff Diastolic blood pressure--sitting 78 mm[Hg] 78 mm[Hg] [facility] ([facility]) Ra, large cuff Systolic blood pressure--supine 128 mm[Hg] 128 mm[Hg] [facility] ([facility]) Ra, large cuff Diastolic blood pressure--supine 82 mm[Hg] 82 mm[Hg] [facility] ([facility]) Ra, large cuff Systolic blood pressure 122 mm[Hg] 122 mm[Hg] M EDENT ([facility]) Ra, large cuff Diastolic blood pressure 80 mm[Hg] 80 mm[Hg] [facility] ([facility]) Ra, large cuff
[2021-08-10] MEDS ORDERED: ACETAMINOPHEN 325 MG TAB PO ONE (11:55)
[2021-08-10 12:22] VITALS: O2SAT 97
== END 2021-08-10 15:34 | disposition home or self-care (01) ==
LOC: M ED 08:21
DX: U07.1 COVID-19 (principal); I10 Essential (primary) hypertension; J45.909 Unspecified asthma, uncomplicated; Z79.899 Other long term (current) drug therapy; Z91.041 Radiographic dye allergy status; Z91.030 Bee allergy status; Z91.013 Allergy to seafood

== ENCOUNTER 2021-08-10 13:55 | Outpatient (CLI) | payer BC ==
[~2021-08-10] VITALS: Ht 175.3 cm; Wt 80.0 kg
[~2021-08-10 13:55] MED LIST changes: +ALBUTEROL 90 MCG/ACT 8GM HFA INHALER INH PRN; +ALBUTEROL SULFATE 2.5 MG/0.5 ML INH NEB SOLN INH PRN; +EPINEPHrine INJ 1 MG/ML 1ML AMP IM PRN; +LOSA50TA28; +diphenhydrAMINE 50MG/ML VIAL (J1200) IV PRN; +methylPREDNISolone 125MG 2ML VIAL IV PRN
[2021-08-10] MEDS ORDERED: NS 1,000 ML IV SCH (15:30)
[2021-08-10] MEDS ORDERED: BAMLANIVIMAB 700 MG, ETESEVIMAB 1,400 MG in NS 250 ML IV ONE (16:00)
[2021-08-10 16:07] VITALS: BP 117/81
[2021-08-10 16:37] VITALS: BP 129/79
[2021-08-10 17:07] VITALS: BP 135/69
[2021-08-10 18:07] VITALS: BP 119/79
== END 2021-08-10 18:07 | disposition home or self-care (01) ==
LOC: M OPCLI4 13:55
PROVIDERS: ATTEND Internal Medicine
DX: U07.1 COVID-19 (principal); Z91.048 Other nonmedicinal substance allergy status; Z91.013 Allergy to seafood; Z91.030 Bee allergy status